=== PATIENT | female | born 1945 | race Caucasian/White ===

== ENCOUNTER 2016-08-12 18:21 | Inpatient (IN) | payer MEDICARE, OTHER ==
[~2016-08-12] VITALS: Ht 167.6 cm; Wt 65.6 kg
[2016-08-12 18:52] LABS: IS PT STATUS REG ER OR PRE ER? YES
[2016-08-12] MEDS ORDERED: CLOP75TA PO (19:12)
[2016-08-12] MEDS ORDERED: OMEP-110 PO (19:12)
[2016-08-12] MEDS ORDERED: LEVO88TA4 PO (19:12)
[2016-08-12] MEDS ORDERED: LISI5TAB7 PO (19:12)
[2016-08-12] MEDS ORDERED: TIOT18CA INH (19:12)
[2016-08-12] MEDS ORDERED: DIVA500T9 PO (19:12)
[2016-08-12] MEDS ORDERED: FENO145T13 PO (19:12)
[2016-08-12] MEDS ORDERED: AMIT50TA PO (19:12)
[2016-08-12] MEDS ORDERED: SIMV40TA3 PO (19:13)
[2016-08-12] MEDS ORDERED: ONDANSETRON 2MG/ML, 2ML IVPush PRN (20:30)
[2016-08-12] MEDS ORDERED: SODIUM CHLORIDE 0.9% 1,000 ML IV SCH (21:04)
[2016-08-12] MEDS ORDERED: LABETALOL 5MG/ML, 20ML IV PRN (21:30)
[2016-08-12] MEDS ORDERED: POLYETHYLENE GLYCOL 17 GM PACKET PO PRN (21:30)
[2016-08-12] MEDS ORDERED: DOCUSATE 100 MG CAPSULE PO PRN (21:30)
[2016-08-12] MEDS: PLEASE ENTER HEIGHT AND WEIGHT MC SCH (21:30)
[2016-08-12] MEDS ORDERED: ACETAMINOPHEN 325 MG TABLET PO PRN (21:30)
[2016-08-12] MEDS ORDERED: ONDANSETRON 2MG/ML, 2ML IVP PRN (21:30)
[2016-08-12] MEDS ORDERED: BISACODYL 10 MG SUPP PR PRN (21:30)
[2016-08-12] MEDS: ENOXAPARIN 40 MG/0.4 ML SQ SCH (21:30)
[2016-08-12] MEDS ORDERED: TRAZODONE 50MG TABLET PO PRN (21:30)
[2016-08-12] MEDS: DIVALPROEX 500 MG TABLET.DR PO SCH (23:01)
[2016-08-12] MEDS: ATORVASTATIN 40 MG TABLET PO SCH (23:03)
[2016-08-12 23:30] VITALS: BP 135/79
[2016-08-12] MEDS: AMITRIPTYLINE 50 MG TABLET PO SCH (23:53)
[2016-08-13] VITALS (7 sets, daily range): BP systolic 109–144; BP diastolic 72–85
[2016-08-13 06:16] LABS: BLOOD UREA NITROGEN 20 mg/dL (7-18)
[2016-08-13 06:27] LABS: ASPARTATE AMINO TRANSFERASE 26 U/L (15-37)
[2016-08-13] MEDS: IPRATROPIUM 0.5 MG/2.5 ML INHA HHN SCH ×3 (09:00→21:00)
[2016-08-13] MEDS: PLEASE ENTER HEIGHT AND WEIGHT MC SCH (09:55)
[2016-08-13] MEDS: OMEPRAZOLE 20 MG CAPSULE.DR PO SCH (10:15)
[2016-08-13] MEDS: CLOPIDOGREL 75 MG TABLET PO SCH (10:15)
[2016-08-13] MEDS: DIVALPROEX 500 MG TABLET.DR PO SCH ×3 (10:15→22:08)
[2016-08-13] MEDS: LISINOPRIL 5 MG TABLET PO SCH (10:15)
[2016-08-13] MEDS: FENOFIBRATE 145 MG TABLET PO SCH (10:16)
[2016-08-13] MEDS: LEVOTHYROXINE 88 MCG TABLET PO SCH (10:16)
[2016-08-13] MEDS ORDERED: GADOBUTROL 7.5 MMOL/7.5 ML PFS ONE (11:38)
[2016-08-13] MEDS ORDERED: LABETALOL 5MG/ML, 20ML IV PRN (14:16)
[2016-08-13] MEDS ORDERED: AMITRIPTYLINE 50 MG TABLET PO SCH (21:00)
[2016-08-13] MEDS ORDERED: SODIUM CHLORIDE 0.9% 1,000 ML IV SCH (21:04)
[2016-08-13] MEDS: ATORVASTATIN 40 MG TABLET PO SCH (22:08)
[2016-08-13] MEDS: AMITRIPTYLINE 50 MG TABLET PO SCH (22:08)
[2016-08-13] MEDS: ENOXAPARIN 40 MG/0.4 ML SQ SCH (22:14)
[2016-08-14] VITALS: BP 137/85
[2016-08-14] MEDS ORDERED: IPRATROPIUM 0.5 MG/2.5 ML INHA NPPB SCH (03:30)
[2016-08-14 04:27] VITALS: BP 120/77
[2016-08-14 06:34] VITALS: BP 134/85
[2016-08-14] MEDS: CLOPIDOGREL 75 MG TABLET PO SCH (08:42)
[2016-08-14] MEDS: FENOFIBRATE 145 MG TABLET PO SCH (08:42)
[2016-08-14] MEDS: OMEPRAZOLE 20 MG CAPSULE.DR PO SCH (08:42)
[2016-08-14] MEDS: LEVOTHYROXINE 88 MCG TABLET PO SCH (08:42)
[2016-08-14] MEDS: LISINOPRIL 5 MG TABLET PO SCH (08:42)
[2016-08-14] MEDS: DIVALPROEX 500 MG TABLET.DR PO SCH (08:42)
== END 2016-08-14 11:10 | disposition home health service (06) | DRG 69 ==
LOC: ED 19:46 → EDIP 20:17 → 4EST 21:07 → DCLOUNGE 08-14 10:45
PROVIDERS: ADMIT Internal Medicine; ATTEND Internal Medicine
DX: G45.9 Transient cerebral ischemic attack, unspecified (principal); R47.01 Aphasia; E78.5 Hyperlipidemia, unspecified; E03.9 Hypothyroidism, unspecified; I10 Essential (primary) hypertension; G43.909 Migraine, unspecified, not intractable, without status migrainosus; G46.0 Middle cerebral artery syndrome; J44.9 Chronic obstructive pulmonary disease, unspecified; I25.10 Atherosclerotic heart disease of native coronary artery without angina pectoris; I25.2 Old myocardial infarction; Z82.49 Family history of ischemic heart disease and other diseases of the circulatory system; Z80.9 Family history of malignant neoplasm, unspecified; Z85.528 Personal history of other malignant neoplasm of kidney; Z86.73 Personal history of transient ischemic attack (TIA), and cerebral infarction without residual deficits; Z87.891 Personal history of nicotine dependence; Z91.19 Patient's noncompliance with other medical treatment and regimen; Z90.5 Acquired absence of kidney
CPT/HCPCS: 36415; 70450; 70551; 71010; 80047; 80053; 80061; 83735; 84439; 84443; 84484; 85025; 85610; 85730; 93005; 93880; 94640; A9585; J1650; J7644; 92523-GN; J7030

== ENCOUNTER 2017-05-28 09:50 | Emergency (ER) | payer MEDICARE, MEDICAID ==
[~2017-05-28] VITALS: Ht 165.1 cm; Wt 68.0 kg
[~2017-05-28 09:50] MED LIST: AMIT50TA PO; CLIN300C3 PO; CLOP75TA PO; DIVA-68 PO; FENO145T13 PO; LEVO88TA4 PO; LISI5TAB7 PO; OMEP-110 PO; SIMV40TA3 PO; TIOT18CA INH
[2017-05-28 10:58] LABS: BASOPHILS # (AUTO) 0.02 x10^3/uL (0-0.1); BASOPHILS % (AUTO) 0 % (0-1); EOSINOPHILS # (AUTO) 0.11 x10^3/uL (0-0.4); EOSINOPHILS % (AUTO) 3 % (1-7); INTERNATIONAL NORMALIZED RATIO 0.98 (0.93-1.1); LYMPHOCYTES # (AUTO) 1.44 x10^3/uL (1-3.4); LYMPHOCYTES % (AUTO) 38 % (22-44); MD NO; MEAN CORPUSCULAR HEMOGLOBIN 31.3 pg (27.0-34.8); MEAN CORPUSCULAR HGB CONC 33.5 g/dL (32.4-35.8); MEAN CORPUSCULAR VOLUME 93.3 fL (80-100); MEAN PLATELET VOLUME 7.6 fL (7.4-10.4); MONOCYTES # (AUTO) 0.42 x10^3/uL (0.2-0.8); MONOCYTES % (AUTO) 11 % (2-9); NEUTROPHILS # (AUTO) 1.82 x10^3/uL (1.8-6.8); NEUTROPHILS % (AUTO) 48 % (42-75); PLATELET COUNT 150 x10^3/uL (130-400); PROTHROMBIN TIME 10.1 Seconds (9.6-11.5); RED CELL DISTRIBUTION WIDTH 15.6 % (9.6-15.2)
[2017-05-28 11:00] LABS: ALBUMIN 2.7 g/dL (3.4-5.0); ANION GAP 5 mmol/L (5-15); CALCIUM 8.7 mg/dL (8.5-10.1); CHLORIDE 103 mmol/L (98-107)
[2017-05-28 11:05] LABS: CREATININE 0.62 mg/dL (0.55-1.02); TROPONIN I < 0.015 ng/mL (0.000-0.045)
[2017-05-28] MEDS ORDERED: LIDOCAINE 1%, 20ML ONE (11:08)
[2017-05-28] MEDS ORDERED: PHENYLEPHRINE NASAL 1%, 15ML SPRAY ONE (11:08)
[2017-05-28 12:24] VITALS: BP 168/92
== END 2017-05-28 12:27 | disposition home or self-care (01) ==
LOC: ED 11:08
DX: C64.9 Malignant neoplasm of unspecified kidney, except renal pelvis (principal); J44.9 Chronic obstructive pulmonary disease, unspecified
CPT/HCPCS: 30901; 36415; 80048; 82040; 83880; 84484; 85025; 85610; 93005; 99285

== ENCOUNTER 2017-07-13 11:10 | Inpatient (IN) | payer MEDICARE, MEDICAID ==
[~2017-07-13] VITALS: Ht 167.6 cm; Wt 73.8 kg
[2017-07-13 11:41] LABS: BASOPHILS # (AUTO) 0.02 x10^3/uL (0-0.1); BASOPHILS % (AUTO) 0 % (0-1); EOSINOPHILS # (AUTO) 0.05 x10^3/uL (0-0.4); EOSINOPHILS % (AUTO) 1 % (1-7); LYMPHOCYTES # (AUTO) 2.29 x10^3/uL (1-3.4); LYMPHOCYTES % (AUTO) 52 % (22-44); MD NO; MEAN CORPUSCULAR HEMOGLOBIN 32.7 pg (27.0-34.8); MEAN CORPUSCULAR HGB CONC 34.1 g/dL (32.4-35.8); MEAN CORPUSCULAR VOLUME 95.9 fL (80-100); MEAN PLATELET VOLUME 7.6 fL (7.4-10.4); MONOCYTES # (AUTO) 0.43 x10^3/uL (0.2-0.8); MONOCYTES % (AUTO) 10 % (2-9); NEUTROPHILS # (AUTO) 1.63 x10^3/uL (1.8-6.8); NEUTROPHILS % (AUTO) 37 % (42-75); PLATELET COUNT 189 x10^3/uL (130-400); RED BLOOD COUNT 3.76 x10^6/uL (3.82-5.3); RED CELL DISTRIBUTION WIDTH 15.7 % (9.6-15.2)
[2017-07-13 11:49] LABS: INTERNATIONAL NORMALIZED RATIO 0.95 (0.93-1.1); PROTHROMBIN TIME 9.9 Seconds (9.6-11.5)
[2017-07-13 11:53] LABS: ALBUMIN 3.4 g/dL (3.4-5.0); CALCIUM 8.8 mg/dL (8.5-10.1); CHLORIDE 101 mmol/L (98-107)
[2017-07-13 11:58] LABS: ALANINE AMINOTRANSFERASE 12 U/L (12-78); ALKALINE PHOSPHATASE 68 U/L (45-117); ANION GAP 6 mmol/L (5-15); BILIRUBIN,TOTAL 0.7 mg/dL (0.2-1.0); CREATININE 0.72 mg/dL (0.55-1.02); TOTAL PROTEIN 7.6 g/dL (6.4-8.2)
[2017-07-13] MEDS ORDERED: LABETALOL 5MG/ML, 20ML IVPush ONE (12:00)
[2017-07-13] MEDS ORDERED: PLEASE ENTER HEIGHT AND WEIGHT MC SCH (12:00)
[2017-07-13] MEDS ORDERED: LABETALOL 5MG/ML, 20ML ONE (12:07)
[2017-07-13] MEDS ORDERED: ASPI-515 PO (12:18)
[2017-07-13] MEDS ORDERED: LORA2ORA PO (12:18)
[2017-07-13] MEDS ORDERED: AMIT50TA PO (12:18)
[2017-07-13] MEDS ORDERED: [UNRECOGNIZED DRUG - OTHER] (12:18)
[2017-07-13] MEDS ORDERED: SODIUM CHLORIDE FLUSH 10ML SYR IVF PRN (12:30)
[2017-07-13] MEDS ORDERED: POLYETHYLENE GLYCOL 17 GM PACKET PO PRN (13:30)
[2017-07-13] MEDS ORDERED: hydrALAzine 20 MG/ML, 1ML IVPush PRN ×2 (13:30→21:30)
[2017-07-13] MEDS ORDERED: BISACODYL 10 MG SUPP PR PRN (13:30)
[2017-07-13] MEDS ORDERED: PROMETHAZINE 25 MG/ML, 1ML IM PRN (13:30)
[2017-07-13] MEDS ORDERED: LABETALOL 5MG/ML, 20ML IVPush PRN ×2 (13:30→18:00)
[2017-07-13 14:00] VITALS: BP 189/116
[2017-07-13] MEDS ORDERED: AMLODIPINE 5 MG TABLET PO ONE (14:00)
[2017-07-13 14:01] VITALS: BP 189/116
[2017-07-13] MEDS: HYDROcodone/APAP 5/325 TABLET PO PRN ×2 (15:38→21:44)
[2017-07-13] MEDS: ENOXAPARIN 40 MG/0.4 ML SQ SCH (15:38)
[2017-07-13] MEDS: DIVALPROEX 500 MG TABLET.DR PO SCH ×2 (15:38→21:44)
[2017-07-13 16:24] VITALS: BP 190/98
[2017-07-13 16:56] VITALS: BP 176/90
[2017-07-13 17:29] VITALS: BP 167/88
[2017-07-13 20:28] VITALS: BP 137/80
[2017-07-13] MEDS: SIMVASTATIN 40 MG TABLET PO SCH (21:44)
[2017-07-13] MEDS: LORazepam INTENSOL 2 MG/ML PO SCH (21:44)
[2017-07-13] MEDS: AMITRIPTYLINE 50 MG TABLET PO SCH (21:44)
[2017-07-13 22:20] LABS: MICROSCOPIC INDICATED
[2017-07-13 22:29] LABS: CULTURE INDICATED? YES
[2017-07-14 00:47] VITALS: BP 127/76
[2017-07-14 06:01] LABS: ANION GAP 7 mmol/L (5-15); CALCIUM 8.5 mg/dL (8.5-10.1); CHLORIDE 102 mmol/L (98-107)
[2017-07-14 06:06] LABS: ALANINE AMINOTRANSFERASE 11 U/L (12-78); ALBUMIN 2.8 g/dL (3.4-5.0); ALKALINE PHOSPHATASE 58 U/L (45-117); BILIRUBIN,TOTAL 0.4 mg/dL (0.2-1.0); TOTAL PROTEIN 6.8 g/dL (6.4-8.2)
[2017-07-14] MEDS: LEVOTHYROXINE 88 MCG TABLET PO SCH (06:19)
[2017-07-14] MEDS: ACETAMINOPHEN 325 MG TABLET PO PRN ×3 (06:19→16:07)
[2017-07-14 06:26] LABS: CHOL/HDL RATIO 2.9; LDL/HDL RATIO 1.1 (0.5-3.0); THYROID STIMULATING HORMONE 1.32 mIU/L (0.358-3.740)
[2017-07-14 06:57] VITALS: BP 124/71
[2017-07-14 08:54] VITALS: BP 123/73
[2017-07-14] MEDS ORDERED: LISINOPRIL 5 MG TABLET PO SCH (09:00)
[2017-07-14] MEDS: DIVALPROEX 500 MG TABLET.DR PO SCH ×3 (10:32→20:49)
[2017-07-14] MEDS: FENOFIBRATE 145 MG TABLET PO SCH (10:32)
[2017-07-14] MEDS: ASPIRIN 81 MG TABLET EC PO SCH (10:32)
[2017-07-14 13:24] VITALS: BP 127/73
[2017-07-14] MEDS: ENOXAPARIN 40 MG/0.4 ML SQ SCH (16:07)
[2017-07-14 19:28] VITALS: BP 135/83
[2017-07-14] MEDS: SIMVASTATIN 40 MG TABLET PO SCH (20:49)
[2017-07-14] MEDS: AMITRIPTYLINE 50 MG TABLET PO SCH (20:49)
[2017-07-14] MEDS: LORazepam INTENSOL 2 MG/ML PO SCH (20:49)
[2017-07-15 03:35] VITALS: BP 122/78
[2017-07-15] MEDS: LEVOTHYROXINE 88 MCG TABLET PO SCH (06:01)
[2017-07-15 07:33] VITALS: BP 138/81
[2017-07-15] MEDS: ASPIRIN 81 MG TABLET EC PO SCH (08:52)
[2017-07-15] MEDS: DIVALPROEX 500 MG TABLET.DR PO SCH ×2 (08:52→15:49)
[2017-07-15] MEDS: FENOFIBRATE 145 MG TABLET PO SCH (08:52)
[2017-07-15 14:50] VITALS: BP 149/84
[2017-07-15] MEDS: ENOXAPARIN 40 MG/0.4 ML SQ SCH (15:49)
== END 2017-07-15 18:08 | DRG 103 ==
LOC: ED 12:17 → EDIP 12:18 → ED 12:31 → 4EST 13:06
PROVIDERS: ADMIT Family Medicine; ATTEND Family Medicine
DX: G43.109 Migraine with aura, not intractable, without status migrainosus (principal); I65.23 Occlusion and stenosis of bilateral carotid arteries; I69.351 Hemiplegia and hemiparesis following cerebral infarction affecting right dominant side; Z99.81 Dependence on supplemental oxygen; J44.9 Chronic obstructive pulmonary disease, unspecified; I10 Essential (primary) hypertension; E03.9 Hypothyroidism, unspecified; E78.5 Hyperlipidemia, unspecified; Z66 Do not resuscitate; F41.9 Anxiety disorder, unspecified; I16.0 Hypertensive urgency; I25.10 Atherosclerotic heart disease of native coronary artery without angina pectoris; K59.00 Constipation, unspecified; I25.2 Old myocardial infarction; Z85.528 Personal history of other malignant neoplasm of kidney; Z87.891 Personal history of nicotine dependence; Z90.5 Acquired absence of kidney; Z79.899 Other long term (current) drug therapy; Z88.5 Allergy status to narcotic agent; G44.89 Other headache syndrome
CPT/HCPCS: 36415; 70450; 70551; 80047; 80053; 80061; 80164; 81001; 82962; 84443; 85025; 85520; 85610; 85730; 87086; 93005; 93306; 93880; 96374; J1650; 92523-GN; J0360

== ENCOUNTER 2017-10-23 16:00 | Inpatient (IN) | payer MEDICARE, MEDICAID ==
[~2017-10-23] VITALS: Ht 165.1 cm; Wt 82.2 kg
[~2017-10-23 16:00] MED LIST changes: +ASPI-515 PO; -FENO145T13 PO; +FENO145T30 PO; +LORA2ORA PO; +[UNRECOGNIZED DRUG - OTHER]
[2017-10-23] MEDS ORDERED: MORPHINE SULFATE 4 MG/ML, 1ML ONE (16:13)
[2017-10-23] MEDS ORDERED: PROCHLORPERAZINE 5 MG/ML, 2ML ONE (16:13)
[2017-10-23] MEDS ORDERED: HYDROmorphone 2 MG/ML, 1ML ONE ×3 (16:24→19:12)
[2017-10-23 16:30] LABS: BASOPHILS # (AUTO) 0.03 x10^3/uL (0-0.1); BASOPHILS % (AUTO) 1 % (0-1); EOSINOPHILS # (AUTO) 0.07 x10^3/uL (0-0.4); EOSINOPHILS % (AUTO) 1 % (1-7); LYMPHOCYTES # (AUTO) 2.23 x10^3/uL (1-3.4); LYMPHOCYTES % (AUTO) 40 % (22-44); MD NO; MEAN CORPUSCULAR HEMOGLOBIN 31.9 pg (27.0-34.8); MEAN CORPUSCULAR HGB CONC 33.4 g/dL (32.4-35.8); MEAN CORPUSCULAR VOLUME 95.7 fL (80-100); MEAN PLATELET VOLUME 7.4 fL (7.4-10.4); MONOCYTES # (AUTO) 0.44 x10^3/uL (0.2-0.8); MONOCYTES % (AUTO) 8 % (2-9); NEUTROPHILS # (AUTO) 2.77 x10^3/uL (1.8-6.8); NEUTROPHILS % (AUTO) 50 % (42-75); PLATELET COUNT 182 x10^3/uL (130-400); RED BLOOD COUNT 3.35 x10^6/uL (3.82-5.3); RED CELL DISTRIBUTION WIDTH 14.4 % (9.6-15.2)
[2017-10-23] MEDS ORDERED: MORPHINE SULFATE 4 MG/ML, 1ML IVPush PRN (16:30)
[2017-10-23] MEDS ORDERED: HYDROmorphone 1 MG/ML, 1ML IV ONE ×2 (16:30→18:30)
[2017-10-23] MEDS ORDERED: PROCHLORPERAZINE 5 MG/ML, 2ML IVPush PRN (16:30)
[2017-10-23] MEDS ORDERED: MELA5TAB19 PO (16:35)
[2017-10-23] MEDS ORDERED: OMEP-110 PO (16:35)
[2017-10-23 16:36] LABS: INTERNATIONAL NORMALIZED RATIO 0.96 (0.93-1.1)
[2017-10-23 16:38] LABS: ALBUMIN 3.1 g/dL (3.4-5.0); ANION GAP 6 mmol/L (5-15); CALCIUM 8.7 mg/dL (8.5-10.1); CHLORIDE 104 mmol/L (98-107); CREATININE 0.65 mg/dL (0.55-1.02)
[2017-10-23] MEDS ORDERED: HYDROmorphone 1 MG/ML, 1ML IVPush PRN (19:30)
[2017-10-23 20:19] VITALS: BP 134/77
[2017-10-23] MEDS ORDERED: POLYETHYLENE GLYCOL 17 GM PACKET PO PRN (20:30)
[2017-10-23] MEDS ORDERED: ONDANSETRON 2MG/ML, 2ML IVPush PRN (20:30)
[2017-10-23] MEDS ORDERED: ONDANSETRON ODT 4 MG PO PRN (20:30)
[2017-10-23] MEDS: HYDROmorphone 2 MG/ML, 1ML IVPush PRN ×2 (20:54→23:59)
[2017-10-23] MEDS: SODIUM CHLORIDE 0.9% 1,000 ML IV SCH (20:54)
[2017-10-23] MEDS: OXYcodone IR 5MG TABLET PO PRN (20:54)
[2017-10-23] MEDS: DIVALPROEX 500 MG TABLET.DR PO SCH (22:10)
[2017-10-23] MEDS: MELATONIN 5 MG TABLET PO SCH (22:10)
[2017-10-23] MEDS: AMITRIPTYLINE 50 MG TABLET PO SCH (22:10)
[2017-10-23] MEDS: SIMVASTATIN 40 MG TABLET PO SCH (22:11)
[2017-10-23] MEDS: ENOXAPARIN 40 MG/0.4 ML SQ SCH (22:11)
[2017-10-23 22:48] LABS: MICROSCOPIC AUTO
[2017-10-23 22:49] LABS: CULTURE INDICATED? NO
[2017-10-24 00:40] VITALS: BP 133/82
[2017-10-24 04:11] VITALS: BP 104/53
[2017-10-24] MEDS: HYDROmorphone 2 MG/ML, 1ML IVPush PRN ×2 (04:14→08:29)
[2017-10-24 05:43] LABS: ANION GAP 6 mmol/L (5-15); CHLORIDE 105 mmol/L (98-107)
[2017-10-24 05:44] LABS: CREATININE 0.82 mg/dL (0.55-1.02)
[2017-10-24 05:50] LABS: BASOPHILS # (AUTO) 0.02 x10^3/uL (0-0.1); BASOPHILS % (AUTO) 0 % (0-1); EOSINOPHILS # (AUTO) 0.01 x10^3/uL (0-0.4); EOSINOPHILS % (AUTO) 0 % (1-7); LYMPHOCYTES # (AUTO) 1.34 x10^3/uL (1-3.4); LYMPHOCYTES % (AUTO) 17 % (22-44); MD NO; MEAN CORPUSCULAR HEMOGLOBIN 31.8 pg (27.0-34.8); MEAN CORPUSCULAR HGB CONC 32.6 g/dL (32.4-35.8); MEAN CORPUSCULAR VOLUME 97.6 fL (80-100); MEAN PLATELET VOLUME 8.2 fL (7.4-10.4); MONOCYTES # (AUTO) 0.75 x10^3/uL (0.2-0.8); MONOCYTES % (AUTO) 9 % (2-9); NEUTROPHILS # (AUTO) 5.81 x10^3/uL (1.8-6.8); NEUTROPHILS % (AUTO) 73 % (42-75); PLATELET COUNT 186 x10^3/uL (130-400); RED BLOOD COUNT 3.24 x10^6/uL (3.82-5.3); RED CELL DISTRIBUTION WIDTH 14.5 % (9.6-15.2)
[2017-10-24] MEDS: OXYcodone IR 5MG TABLET PO PRN ×3 (06:45→17:26)
[2017-10-24 08:23] VITALS: BP 112/64
[2017-10-24] MEDS: LISINOPRIL 5 MG TABLET PO SCH (09:56)
[2017-10-24] MEDS: SENNA/DOCUSATE TABLET PO SCH (09:56)
[2017-10-24] MEDS: OMEPRAZOLE 20 MG CAPSULE.DR PO SCH (09:56)
[2017-10-24] MEDS: LEVOTHYROXINE 88 MCG TABLET PO SCH (09:56)
[2017-10-24] MEDS: FENOFIBRATE 145 MG TABLET PO SCH (09:56)
[2017-10-24] MEDS: DIVALPROEX 500 MG TABLET.DR PO SCH ×3 (09:57→20:36)
[2017-10-24] MEDS: ASPIRIN 81 MG TABLET EC PO SCH (09:57)
[2017-10-24] MEDS: SODIUM CHLORIDE 0.9% 1,000 ML IV SCH ×2 (09:58→20:25)
[2017-10-24 12:59] VITALS: BP 100/46
[2017-10-24] MEDS: SIMVASTATIN 40 MG TABLET PO SCH (20:36)
[2017-10-24] MEDS: MELATONIN 5 MG TABLET PO SCH (20:36)
[2017-10-24] MEDS: AMITRIPTYLINE 50 MG TABLET PO SCH (20:37)
[2017-10-24] MEDS: ENOXAPARIN 40 MG/0.4 ML SQ SCH (20:37)
[2017-10-24 20:52] VITALS: BP 118/54
[2017-10-25] MEDS: OXYcodone IR 5MG TABLET PO PRN (00:02)
[2017-10-25 01:36] VITALS: BP 103/65
[2017-10-25] MEDS ORDERED: HYDROmorphone 2 MG/ML, 1ML IVPush PRN (02:30)
[2017-10-25] MEDS: SODIUM CHLORIDE 0.9% 1,000 ML IV SCH ×3 (03:50→20:22)
[2017-10-25 04:00] VITALS: BP 124/48
[2017-10-25] MEDS ORDERED: SODIUM CHLORIDE 0.9%, 250ML IVBOLUS ONE (05:00)
[2017-10-25] MEDS: LEVOTHYROXINE 88 MCG TABLET PO SCH (05:22)
[2017-10-25 07:16] VITALS: BP 117/46
[2017-10-25 07:31] LABS: MEAN CORPUSCULAR HGB CONC 32.4 g/dL (32.4-35.8); MEAN CORPUSCULAR VOLUME 98.8 fL (80-100); PLATELET COUNT 140 x10^3/uL (130-400); RED BLOOD COUNT 2.67 x10^6/uL (3.82-5.3); RED CELL DISTRIBUTION WIDTH 14.4 % (9.6-15.2)
[2017-10-25 07:37] LABS: HEMOGRAM NOTE RECHECKED
[2017-10-25 07:50] LABS: ALANINE AMINOTRANSFERASE 14 U/L (12-78); ALBUMIN 2.3 g/dL (3.4-5.0); ANION GAP 3 mmol/L (5-15); CALCIUM 8.4 mg/dL (8.5-10.1); CHLORIDE 111 mmol/L (98-107); CREATININE 0.99 mg/dL (0.55-1.02)
[2017-10-25 07:52] LABS: ALKALINE PHOSPHATASE 48 U/L (45-117); BILIRUBIN,TOTAL 0.3 mg/dL (0.2-1.0); TOTAL PROTEIN 5.8 g/dL (6.4-8.2)
[2017-10-25] MEDS ORDERED: NALOXONE 0.4 MG/ML, 1ML IVPush ONE ×2 (08:00→10:30)
[2017-10-25 08:06] LABS: BASOPHILS # (AUTO) 0.02 x10^3/uL (0-0.1); BASOPHILS % (AUTO) 0 % (0-1); EOSINOPHILS # (AUTO) 0.04 x10^3/uL (0-0.4); EOSINOPHILS % (AUTO) 0 % (1-7); LYMPHOCYTES # (AUTO) 1.63 x10^3/uL (1-3.4); LYMPHOCYTES % (AUTO) 14 % (22-44); MD SCAN; MONOCYTES # (AUTO) 1.72 x10^3/uL (0.2-0.8); MONOCYTES % (AUTO) 15 % (2-9); NEUTROPHILS # (AUTO) 8.31 x10^3/uL (1.8-6.8); NEUTROPHILS % (AUTO) 71 % (42-75)
[2017-10-25] MEDS: SENNA/DOCUSATE TABLET PO SCH (09:00)
[2017-10-25] MEDS: LISINOPRIL 5 MG TABLET PO SCH (09:00)
[2017-10-25] MEDS: FENOFIBRATE 145 MG TABLET PO SCH (09:00)
[2017-10-25] MEDS: ASPIRIN 81 MG TABLET EC PO SCH (09:00)
[2017-10-25] MEDS: DIVALPROEX 500 MG TABLET.DR PO SCH ×3 (09:00→20:53)
[2017-10-25] MEDS: OMEPRAZOLE 20 MG CAPSULE.DR PO SCH (09:00)
[2017-10-25] MEDS ORDERED: ALBUTEROL/IPRATROPIUM 2.5MG/0.5MG, 3 ML ONE (09:54)
[2017-10-25] MEDS: ALBUTEROL/IPRATROPIUM 2.5MG/0.5MG, 3 ML INLINE SCH ×4 (10:11→23:51)
[2017-10-25] MEDS ORDERED: NALOXONE 0.4 MG in SODIUM CHLORIDE 0.9% 1,000 ML IV SCH (10:30)
[2017-10-25] MEDS: NALOXONE IV SCH ×2 (12:24→18:24)
[2017-10-25] MEDS: SODIUM CHLORIDE 0.9% IV SCH ×2 (12:24→18:24)
[2017-10-25] MEDS: methylPREDNISolone SOD SUCC 125 MG/2 ML IVPush SCH ×2 (13:44→20:18)
[2017-10-25] MEDS: ENOXAPARIN 40 MG/0.4 ML SQ SCH (20:18)
[2017-10-25] MEDS: AMITRIPTYLINE 50 MG TABLET PO SCH (20:53)
[2017-10-25] MEDS: MELATONIN 5 MG TABLET PO SCH (20:53)
[2017-10-25] MEDS: SIMVASTATIN 40 MG TABLET PO SCH (20:53)
[2017-10-25] MEDS ORDERED: LABETALOL 5MG/ML, 20ML IVPush PRN (23:30)
[2017-10-25] MEDS ORDERED: LABETALOL 5MG/ML, 20ML ONE (23:43)
[2017-10-26] MEDS: methylPREDNISolone SOD SUCC 125 MG/2 ML IVPush SCH ×4 (01:57→18:04)
[2017-10-26] MEDS: LABETALOL 5MG/ML, 20ML IVPush PRN ×4 (01:58→17:08)
[2017-10-26] MEDS: ALBUTEROL/IPRATROPIUM 2.5MG/0.5MG, 3 ML INLINE SCH ×6 (02:29→22:30)
[2017-10-26 04:00] VITALS: BP 172/93
[2017-10-26 04:30] LABS: ALANINE AMINOTRANSFERASE 13 U/L (12-78); ALBUMIN 2.3 g/dL (3.4-5.0); ANION GAP 3 mmol/L (5-15); CALCIUM 8.8 mg/dL (8.5-10.1); CHLORIDE 113 mmol/L (98-107)
[2017-10-26 04:31] LABS: MEAN CORPUSCULAR HEMOGLOBIN 32.4 pg (27.0-34.8); MEAN CORPUSCULAR HGB CONC 33.6 g/dL (32.4-35.8); MEAN CORPUSCULAR VOLUME 96.6 fL (80-100); RED BLOOD COUNT 2.63 x10^6/uL (3.82-5.3); RED CELL DISTRIBUTION WIDTH 14.1 % (9.6-15.2)
[2017-10-26 04:33] LABS: ALKALINE PHOSPHATASE 49 U/L (45-117); BILIRUBIN,TOTAL 0.4 mg/dL (0.2-1.0)
[2017-10-26 04:37] LABS: O2 FLOW 6 L/min
[2017-10-26 05:06] LABS: BASOPHILS # (AUTO) 0.01 x10^3/uL (0-0.1); BASOPHILS % (AUTO) 0 % (0-1); EOSINOPHILS % (AUTO) 0 % (1-7); LYMPHOCYTES # (AUTO) 0.46 x10^3/uL (1-3.4); LYMPHOCYTES % (AUTO) 8 % (22-44); MD SCAN; MEAN PLATELET VOLUME 7.9 fL (7.4-10.4); MONOCYTES # (AUTO) 0.06 x10^3/uL (0.2-0.8); MONOCYTES % (AUTO) 1 % (2-9); NEUTROPHILS # (AUTO) 5.39 x10^3/uL (1.8-6.8); NEUTROPHILS % (AUTO) 91 % (42-75); PLATELET COUNT 120 x10^3/uL (130-400)
[2017-10-26] MEDS: LEVOTHYROXINE 88 MCG TABLET PO SCH (06:10)
[2017-10-26] MEDS: DIVALPROEX 500 MG TABLET.DR PO SCH ×3 (09:00→20:29)
[2017-10-26] MEDS: ASPIRIN 81 MG TABLET EC PO SCH (09:00)
[2017-10-26] MEDS: LISINOPRIL 5 MG TABLET PO SCH (09:00)
[2017-10-26] MEDS: SENNA/DOCUSATE TABLET PO SCH (09:00)
[2017-10-26] MEDS: FENOFIBRATE 145 MG TABLET PO SCH (09:00)
[2017-10-26] MEDS: SODIUM CHLORIDE 0.9% 1,000 ML IV SCH ×2 (09:29→17:05)
[2017-10-26] MEDS: NALOXONE IV SCH (12:52)
[2017-10-26] MEDS: SODIUM CHLORIDE 0.9% IV SCH (12:52)
[2017-10-26] MEDS: PANTOPRAZOLE 40 MG IV IVPush SCH (12:53)
[2017-10-26] MEDS: hydrALAzine 20 MG/ML, 1ML IV PRN (18:03)
[2017-10-26] MEDS: AMITRIPTYLINE 50 MG TABLET PO SCH (20:29)
[2017-10-26] MEDS: MELATONIN 5 MG TABLET PO SCH (20:30)
[2017-10-26] MEDS: SIMVASTATIN 40 MG TABLET PO SCH (20:30)
[2017-10-26] MEDS: ENOXAPARIN 40 MG/0.4 ML SQ SCH (20:57)
[2017-10-27] MEDS ORDERED: KETOROLAC 30 MG/1 ML IVPush ONE
[2017-10-27] MEDS: PANTOPRAZOLE 40 MG IV IVPush SCH ×3 (00:39→23:00)
[2017-10-27] MEDS: methylPREDNISolone SOD SUCC 125 MG/2 ML IVPush SCH ×2 (01:18→08:17)
[2017-10-27] MEDS: SODIUM CHLORIDE 0.9% 1,000 ML IV SCH (01:19)
[2017-10-27] MEDS: hydrALAzine 20 MG/ML, 1ML IV PRN (02:14)
[2017-10-27] MEDS: ALBUTEROL/IPRATROPIUM 2.5MG/0.5MG, 3 ML INLINE SCH ×5 (02:30→22:30)
[2017-10-27] MEDS: LABETALOL 5MG/ML, 20ML IVPush PRN (03:34)
[2017-10-27 04:56] LABS: ANION GAP 8 mmol/L (5-15); CALCIUM 8.6 mg/dL (8.5-10.1); CHLORIDE 117 mmol/L (98-107); CREATININE 0.64 mg/dL (0.55-1.02)
[2017-10-27 04:57] LABS: MEAN CORPUSCULAR HEMOGLOBIN 31.8 pg (27.0-34.8); MEAN CORPUSCULAR HGB CONC 33.3 g/dL (32.4-35.8); MEAN CORPUSCULAR VOLUME 95.6 fL (80-100); RED BLOOD COUNT 2.53 x10^6/uL (3.82-5.3); RED CELL DISTRIBUTION WIDTH 13.8 % (9.6-15.2)
[2017-10-27 05:00] VITALS: BP 176/80
[2017-10-27 05:30] LABS: MEAN PLATELET VOLUME 8.1 fL (7.4-10.4); PLATELET COUNT 103 x10^3/uL (130-400)
[2017-10-27 05:50] LABS: BASOPHILS % (AUTO) 0 % (0-1); EOSINOPHILS % (AUTO) 0 % (1-7); LYMPHOCYTES # (AUTO) 0.28 x10^3/uL (1-3.4); LYMPHOCYTES % (AUTO) 4 % (22-44); MD SCAN; MONOCYTES # (AUTO) 0.09 x10^3/uL (0.2-0.8); MONOCYTES % (AUTO) 1 % (2-9); NEUTROPHILS # (AUTO) 7.02 x10^3/uL (1.8-6.8); NEUTROPHILS % (AUTO) 95 % (42-75)
[2017-10-27] MEDS: LEVOTHYROXINE 88 MCG TABLET PO SCH (05:53)
[2017-10-27] MEDS: ASPIRIN 81 MG TABLET EC PO SCH (09:11)
[2017-10-27] MEDS: FENOFIBRATE 145 MG TABLET PO SCH (09:11)
[2017-10-27] MEDS: SENNA/DOCUSATE TABLET PO SCH (09:12)
[2017-10-27] MEDS: DIVALPROEX 500 MG TABLET.DR PO SCH ×3 (09:12→20:47)
[2017-10-27] MEDS: LISINOPRIL 5 MG TABLET PO SCH (09:12)
[2017-10-27] MEDS: KETOROLAC 30 MG/1 ML IM PRN ×2 (11:48→20:47)
[2017-10-27 16:48] VITALS: BP 152/82
[2017-10-27] MEDS: LABETALOL 100 MG TABLET PO SCH (17:18)
[2017-10-27] MEDS ORDERED: SODIUM CHLORIDE 0.9% 1,000 ML IV SCH (20:05)
[2017-10-27 20:40] VITALS: BP 149/77
[2017-10-27] MEDS: AMITRIPTYLINE 50 MG TABLET PO SCH (20:47)
[2017-10-27] MEDS: ENOXAPARIN 40 MG/0.4 ML SQ SCH (20:47)
[2017-10-27] MEDS: MELATONIN 5 MG TABLET PO SCH (20:47)
[2017-10-27] MEDS: SIMVASTATIN 40 MG TABLET PO SCH (20:47)
[2017-10-28 01:04] VITALS: BP 122/73
[2017-10-28] MEDS: KETOROLAC 30 MG/1 ML IM PRN (03:29)
[2017-10-28 05:24] LABS: BASOPHILS % (AUTO) 0 % (0-1); EOSINOPHILS % (AUTO) 0 % (1-7); LYMPHOCYTES # (AUTO) 1.04 x10^3/uL (1-3.4); LYMPHOCYTES % (AUTO) 18 % (22-44); MD NO; MEAN CORPUSCULAR HEMOGLOBIN 31.8 pg (27.0-34.8); MEAN CORPUSCULAR HGB CONC 33.3 g/dL (32.4-35.8); MEAN CORPUSCULAR VOLUME 95.3 fL (80-100); MONOCYTES # (AUTO) 0.33 x10^3/uL (0.2-0.8); MONOCYTES % (AUTO) 6 % (2-9); NEUTROPHILS # (AUTO) 4.54 x10^3/uL (1.8-6.8); NEUTROPHILS % (AUTO) 77 % (42-75); PLATELET COUNT 110 x10^3/uL (130-400); RED BLOOD COUNT 2.39 x10^6/uL (3.82-5.3)
[2017-10-28 05:28] LABS: ANION GAP 4 mmol/L (5-15); CALCIUM 8.4 mg/dL (8.5-10.1); CHLORIDE 117 mmol/L (98-107); CREATININE 0.89 mg/dL (0.55-1.02)
[2017-10-28] MEDS: LEVOTHYROXINE 88 MCG TABLET PO SCH (05:57)
[2017-10-28 06:27] VITALS: BP 134/80
[2017-10-28] MEDS: ALBUTEROL/IPRATROPIUM 2.5MG/0.5MG, 3 ML INLINE SCH ×5 (07:10→22:00)
[2017-10-28] MEDS ORDERED: prednisOLONE 15 MG/5 ML ORAL SOLN PO SCH (08:00)
[2017-10-28] MEDS: LABETALOL 100 MG TABLET PO SCH ×2 (08:03→17:24)
[2017-10-28] MEDS: SENNA/DOCUSATE TABLET PO SCH (08:03)
[2017-10-28] MEDS: FENOFIBRATE 145 MG TABLET PO SCH (08:03)
[2017-10-28] MEDS: FERROUS SULFATE 325 MG TABLET PO SCH ×2 (08:03→17:24)
[2017-10-28] MEDS: LISINOPRIL 5 MG TABLET PO SCH (08:03)
[2017-10-28] MEDS: ASPIRIN 81 MG TABLET EC PO SCH (08:03)
[2017-10-28] MEDS: DIVALPROEX 500 MG TABLET.DR PO SCH ×3 (08:03→19:50)
[2017-10-28] MEDS: KETOROLAC 30 MG/1 ML IV PRN ×2 (08:06→17:24)
[2017-10-28] MEDS: predniSONE 50MG TABLET PO SCH (08:55)
[2017-10-28] MEDS: PANTOPRAZOLE 40 MG IV IVPush SCH ×2 (11:36→23:36)
[2017-10-28] MEDS ORDERED: PRED50TA PO (13:07)
[2017-10-28] MEDS ORDERED: LABE100T3 PO (13:07)
[2017-10-28] MEDS ORDERED: FERR-51 PO (13:07)
[2017-10-28] MEDS ORDERED: MAGNESIUM CITRATE 300ML ORAL SOL PO PRN (13:30)
[2017-10-28 13:36] VITALS: BP 143/82
[2017-10-28] MEDS ORDERED: PINK LADY ENEMA 490 ML BOTTLE PR ONE ×2 (16:30→18:30)
[2017-10-28 17:23] VITALS: BP 147/82
[2017-10-28 18:45] VITALS: BP 143/77
[2017-10-28] MEDS ORDERED: BISACODYL 10 MG SUPP PR PRN (19:00)
[2017-10-28] MEDS ORDERED: POLYETHYLENE GLYCOL 17 GM PACKET PO PRN (19:00)
[2017-10-28] MEDS: ENOXAPARIN 40 MG/0.4 ML SQ SCH (19:50)
[2017-10-28] MEDS: MELATONIN 5 MG TABLET PO SCH (19:51)
[2017-10-28] MEDS: SIMVASTATIN 40 MG TABLET PO SCH (19:51)
[2017-10-28] MEDS: AMITRIPTYLINE 50 MG TABLET PO SCH (19:51)
[2017-10-29 02:46] VITALS: BP 144/81
[2017-10-29] MEDS: LEVOTHYROXINE 88 MCG TABLET PO SCH (05:19)
[2017-10-29] MEDS: ALBUTEROL/IPRATROPIUM 2.5MG/0.5MG, 3 ML INLINE SCH ×2 (06:34→10:39)
[2017-10-29 06:42] VITALS: BP 148/79
[2017-10-29] MEDS: FERROUS SULFATE 325 MG TABLET PO SCH ×2 (08:33→16:32)
[2017-10-29] MEDS: predniSONE 50MG TABLET PO SCH (08:33)
[2017-10-29] MEDS: LABETALOL 100 MG TABLET PO SCH (08:40)
[2017-10-29] MEDS: SENNA/DOCUSATE TABLET PO SCH (08:41)
[2017-10-29] MEDS: LISINOPRIL 5 MG TABLET PO SCH (08:41)
[2017-10-29] MEDS: FENOFIBRATE 145 MG TABLET PO SCH (08:42)
[2017-10-29] MEDS: ASPIRIN 81 MG TABLET EC PO SCH (08:42)
[2017-10-29] MEDS ORDERED: DOCUSATE 100 MG CAPSULE PO SCH (09:00)
[2017-10-29] MEDS: DIVALPROEX 500 MG TABLET.DR PO SCH ×2 (09:03→16:32)
[2017-10-29] MEDS: KETOROLAC 30 MG/1 ML IV PRN ×2 (09:04→14:39)
[2017-10-29] MEDS: PANTOPRAZOLE 40 MG IV IVPush SCH (13:17)
[2017-10-29 14:58] VITALS: BP 154/78
[2017-10-29] MEDS ORDERED: ALBUTEROL/IPRATROPIUM 2.5MG/0.5MG, 3 ML INLINE SCH (15:00)
== END 2017-10-29 17:15 | DRG 542 ==
LOC: ED 18:18 → EDIP 19:19 → 4NOR 19:45 → CCU 10-25 09:28 → 5SO 10-27 16:46
PROVIDERS: ADMIT Family Medicine; ATTEND Family Medicine
PROC: 0T9B70Z Drainage of Bladder with Drainage Device, Via Natural or Artificial Opening (ICD-10-PCS; principal; 2017-10-23)
DX: M80.052A Age-related osteoporosis with current pathological fracture, left femur, initial encounter for fracture (principal); J96.21 Acute and chronic respiratory failure with hypoxia; J96.22 Acute and chronic respiratory failure with hypercapnia; G92 Toxic encephalopathy; D68.69 Other thrombophilia; E87.2 Acidosis; J44.1 Chronic obstructive pulmonary disease with (acute) exacerbation; S32.592A Other specified fracture of left pubis, initial encounter for closed fracture; F11.10 Opioid abuse, uncomplicated; W01.0XXA Fall on same level from slipping, tripping and stumbling without subsequent striking against object, initial encounter; G25.0 Essential tremor; G43.909 Migraine, unspecified, not intractable, without status migrainosus; I10 Essential (primary) hypertension; T40.2X5A Adverse effect of other opioids, initial encounter; I25.10 Atherosclerotic heart disease of native coronary artery without angina pectoris; K21.9 Gastro-esophageal reflux disease without esophagitis; Z66 Do not resuscitate; Z51.5 Encounter for palliative care; E03.9 Hypothyroidism, unspecified; Z86.711 Personal history of pulmonary embolism; Z86.718 Personal history of other venous thrombosis and embolism; Z86.73 Personal history of transient ischemic attack (TIA), and cerebral infarction without residual deficits; I25.2 Old myocardial infarction; Z79.899 Other long term (current) drug therapy; Z87.891 Personal history of nicotine dependence; Y92.000 Kitchen of unspecified non-institutional (private) residence as the place of occurrence of the external cause; Z85.528 Personal history of other malignant neoplasm of kidney; Z99.81 Dependence on supplemental oxygen; Z90.5 Acquired absence of kidney; Y93.89 Activity, other specified; Y99.8 Other external cause status; Z88.6 Allergy status to analgesic agent; Z82.49 Family history of ischemic heart disease and other diseases of the circulatory system
CPT/HCPCS: 36415; 36600; 70450; 71045; 71275; 72190; 72192; 74177; 80048; 80053; 81001; 82040; 82306; 82550; 82803; 82962; 83605; 85025; 85610; 85730; 87081; 93005; 94640; 94660; 96374; 96375; 96376; 99285; J1170; J1650; J1885; J2310; J7620; C9113; J0360; J0780; J2930; J7030; J7050; J7512

== ENCOUNTER → 2018-01-20 | Outpatient (CLI) | payer MEDICARE, MEDICAID ==
[~2018-01-20] MED LIST changes: +DIVA-61 PO; -DIVA-68 PO; +FERR-51 PO; +LABE100T6 PO; +MELA5TAB19 PO; +OMNIPAQUE 350 MG/ML, 75ML BOTTLE ONE; +PRED50TA PO
== END | disposition home or self-care (01) ==
LOC: CFH 13:56
PROVIDERS: ATTEND Family Medicine
DX: J43.9 Emphysema, unspecified (principal); J98.4 Other disorders of lung; Z90.49 Acquired absence of other specified parts of digestive tract; Z90.5 Acquired absence of kidney; Z86.73 Personal history of transient ischemic attack (TIA), and cerebral infarction without residual deficits; Z86.718 Personal history of other venous thrombosis and embolism
CPT/HCPCS: 71260; Q9967

== ENCOUNTER 2018-03-08 05:54 | Emergency (ER) | payer MEDICARE, MEDICAID ==
[~2018-03-08] VITALS: Ht 162.6 cm; Wt 65.0 kg
[~2018-03-08 05:54] MED LIST changes: -OMNIPAQUE 350 MG/ML, 75ML BOTTLE ONE
[2018-03-08] MEDS ORDERED: DIVA500T4 PO (06:16)
[2018-03-08] MEDS ORDERED: HYDR-3240 PO (06:16)
[2018-03-08] MEDS ORDERED: L.E.T SOLUTION TP ONE ×2 (06:17→06:30)
[2018-03-08] MEDS ORDERED: DIPH,PERTUSS(ACELL),TET VAC/PF 0.5 ML IM-VACC ONE ×2 (06:17→06:30)
[2018-03-08] MEDS ORDERED: LIDOCAINE-MPF 1%, 2ML ONE (06:17)
[2018-03-08] MEDS ORDERED: LIDOCAINE-MPF 1%, 5ML INFIL ONE (06:30)
[2018-03-08 08:00] VITALS: BP 188/78
== END 2018-03-08 08:17 | disposition home or self-care (01) ==
LOC: ED 08:11
DX: S01.01XA Laceration without foreign body of scalp, initial encounter (principal); S60.212A Contusion of left wrist, initial encounter; R51 Headache; J44.9 Chronic obstructive pulmonary disease, unspecified; I25.2 Old myocardial infarction; Z86.73 Personal history of transient ischemic attack (TIA), and cerebral infarction without residual deficits; W06.XXXA Fall from bed, initial encounter; Y93.89 Activity, other specified; Y99.8 Other external cause status; Y92.009 Unspecified place in unspecified non-institutional (private) residence as the place of occurrence of the external cause
CPT/HCPCS: 12005; 70450; 90471; 90715

== ENCOUNTER 2018-05-09 22:34 | Emergency (ER) | payer MEDICARE, MEDICAID ==
[~2018-05-09] VITALS: Ht 165.1 cm; Wt 73.0 kg
[~2018-05-09 22:34] MED LIST changes: +DIVA500T4 PO; +HYDR-3240 PO
[2018-05-09] MEDS ORDERED: PENICILLIN VK 500MG TABLET ONE (22:54)
[2018-05-09] MEDS ORDERED: PENICILLIN VK 500MG TABLET PO SCH (23:00)
--- NOTE | 2018-05-09 23:15 | NUR ---
PT. B/P REMAINS ELEVATED; REPORTED TO BILLY JAY PT. SUPPOSED TO D/C. PT. DOES REPORT DECREASE IN PAIN DOWN TO 6/10. NADN. PT. DENIES NEEDS AT THIS TIME. SAFETY MEASURES MAINTAINED.
[2018-05-10] VITALS: BP 197/97
--- NOTE | 2018-05-10 00:20 | NUR ---
PT. AMBULATED TO BR WITH SHUFFLING GAIT WITH HAND-HELD ASSIST FROM THIS RN. PT. DENIES ANY ROSS OR DISCOMFORT OTHER THAN THE DENTAL PAIN. B/P REPORTED TO SHREYA JAY; PER HER IT IS OK TO D/C PT WITH CURRENT VS.
== END 2018-05-10 00:32 | disposition home or self-care (01) ==
LOC: ED 23:01
DX: K02.9 Dental caries, unspecified (principal); E78.00 Pure hypercholesterolemia, unspecified; J44.9 Chronic obstructive pulmonary disease, unspecified; I10 Essential (primary) hypertension; E03.9 Hypothyroidism, unspecified; Z85.53 Personal history of malignant neoplasm of renal pelvis
CPT/HCPCS: 99284

== ENCOUNTER 2018-06-10 08:38 | Inpatient (IN) | payer MEDICARE, MEDICAID ==
[~2018-06-10] VITALS: Ht 152.4 cm; Wt 69.9 kg
[2018-06-10] MEDS ORDERED: SODIUM CHLORIDE FLUSH 10ML SYR IVF ONE (09:00)
[2018-06-10 09:32] LABS: BASOPHILS # (AUTO) 0.02 x10^3/uL (0-0.1); BASOPHILS % (AUTO) 0 % (0-1); EOSINOPHILS # (AUTO) 0.16 x10^3/uL (0-0.4); EOSINOPHILS % (AUTO) 3 % (1-7); LYMPHOCYTES % (AUTO) 15 % (22-44); MD NO; MEAN CORPUSCULAR HGB CONC 32.1 g/dL (32.4-35.8); MEAN CORPUSCULAR VOLUME 99.7 fL (80-100); MEAN PLATELET VOLUME 6.6 fL (7.4-10.4); MONOCYTES # (AUTO) 0.53 x10^3/uL (0.2-0.8); MONOCYTES % (AUTO) 8 % (2-9); NEUTROPHILS # (AUTO) 4.86 x10^3/uL (1.8-6.8); NEUTROPHILS % (AUTO) 74 % (42-75); PLATELET COUNT 185 x10^3/uL (130-400); RED BLOOD COUNT 3.01 x10^6/uL (3.82-5.3)
--- NOTE | 2018-06-10 09:34 | NUR ---
PT TO RAD VIA TAMMY
[2018-06-10 09:38] LABS: INTERNATIONAL NORMALIZED RATIO 0.93 (0.93-1.1); PROTHROMBIN TIME 9.9 Seconds (9.6-11.5)
[2018-06-10 09:41] LABS: ALBUMIN 2.7 g/dL (3.4-5.0); ANION GAP 5 mmol/L (5-15); CALCIUM 8.3 mg/dL (8.5-10.1); CHLORIDE 100 mmol/L (98-107)
[2018-06-10 09:46] LABS: ALANINE AMINOTRANSFERASE 7 U/L (12-78); ALKALINE PHOSPHATASE 62 U/L (45-117); CREATININE 0.82 mg/dL (0.55-1.02); TOTAL PROTEIN 6.5 g/dL (6.4-8.2); TROPONIN I < 0.015 ng/mL (0.000-0.045)
[2018-06-10 09:48] LABS: BILIRUBIN,TOTAL 0.2 mg/dL (0.2-1.0)
[2018-06-10 11:23] LABS: MICROSCOPIC NOT IND
[2018-06-10 11:26] LABS: CULTURE INDICATED? NO
--- NOTE | 2018-06-10 11:59 | NUR ---
PT PROVIDED WITH MEAL TRAY, DENIES FURTHER NEEDS AT THIS TIME
[2018-06-10] MEDS ORDERED: SODIUM CHLORIDE FLUSH 10ML SYR IVF PRN (12:30)
[2018-06-10] MEDS ORDERED: ONDANSETRON ODT 4 MG PO PRN (13:00)
[2018-06-10] MEDS ORDERED: hydrALAzine 20 MG/ML, 1ML IVPush PRN (13:00)
[2018-06-10] MEDS ORDERED: POLYETHYLENE GLYCOL 17 GM PACKET PO PRN (13:00)
[2018-06-10] MEDS ORDERED: ONDANSETRON 2MG/ML, 2ML IVPush PRN (13:00)
[2018-06-10] MEDS ORDERED: ENALAPRILAT 1.25 MG/ML, 2ML IVPush PRN (13:00)
[2018-06-10] MEDS ORDERED: BISACODYL 10 MG SUPP PR PRN (13:00)
[2018-06-10] MEDS ORDERED: DOCUSATE 100 MG CAPSULE PO PRN (13:00)
[2018-06-10] MEDS ORDERED: IBUPROFEN 600 MG TABLET PO PRN (13:00)
--- NOTE | 2018-06-10 13:28 | NUR ---
TASK RN: ALEXUS ESTABLISHED. PT TOLERATED WITH NO COMPLICATIONS. PT RESTING ON GURNEY. NO ACUTE DISTRESS NOTED. NO NEEDS REQUESTED AT THIS TIME. PT ATE 50% OF MEAL TRAY.
[2018-06-10] MEDS ORDERED: LACTATED RINGERS 1,000 ML IVBOLUS ONE (13:30)
--- NOTE | 2018-06-10 13:49 | NUR ---
SBAR TO TIMOTHY CASH VIA TELEPHONE
[2018-06-10 14:19] VITALS: BP 156/92
[2018-06-10] MEDS: HEPARIN 5,000 UNITS/ML, 1ML SQ SCH ×2 (15:14→20:37)
[2018-06-10] MEDS: NS + 20MEQ KCL 1,000 ML IV SCH (16:18)
[2018-06-10 19:32] VITALS: BP 163/88
[2018-06-10] MEDS: ACETAMINOPHEN 325 MG TABLET PO PRN (20:37)
[2018-06-10] MEDS: AMITRIPTYLINE 50 MG TABLET PO SCH (20:37)
[2018-06-10] MEDS: FAMOTIDINE 20 MG TABLET PO SCH (20:37)
[2018-06-11] VITALS (10 sets, daily range): BP systolic 109–176; BP diastolic 75–99
[2018-06-11] MEDS: NS + 20MEQ KCL 1,000 ML IV SCH ×2 (02:04→15:56)
[2018-06-11] MEDS: HEPARIN 5,000 UNITS/ML, 1ML SQ SCH ×3 (05:33→20:27)
[2018-06-11 06:04] LABS: ALBUMIN 2.5 g/dL (3.4-5.0); ANION GAP 3 mmol/L (5-15); CALCIUM 8.4 mg/dL (8.5-10.1); CHLORIDE 106 mmol/L (98-107)
[2018-06-11 06:10] LABS: ALANINE AMINOTRANSFERASE 8 U/L (12-78); ALKALINE PHOSPHATASE 49 U/L (45-117); BILIRUBIN,TOTAL 0.6 mg/dL (0.2-1.0); CREATININE 0.72 mg/dL (0.55-1.02); TOTAL PROTEIN 5.8 g/dL (6.4-8.2)
[2018-06-11 06:24] LABS: MD YES
[2018-06-11 06:25] LABS: MEAN CORPUSCULAR HEMOGLOBIN 32.9 pg (27.0-34.8); MEAN CORPUSCULAR HGB CONC 33.2 g/dL (32.4-35.8); MEAN CORPUSCULAR VOLUME 99.3 fL (80-100); MEAN PLATELET VOLUME 7.1 fL (7.4-10.4); PLATELET COUNT 138 x10^3/uL (130-400); RED BLOOD COUNT 2.71 x10^6/uL (3.82-5.3); RED CELL DISTRIBUTION WIDTH 17.8 % (9.6-15.2)
[2018-06-11 06:31] LABS: BAND#(MANUAL) 0.04 x10^3/uL; BANDS%(MANUAL) 1 % (0-7); EOS#(MANUAL) 0.18 x10^3/uL (0.0-0.4); EOS% (MANUAL) 5 % (1-7); LYMPH#(MANUAL) 1.23 x10^3/uL (1-3.4); LYMPHS% (MANUAL) 35 % (22-44); MONOS#(MANUAL) 0.32 x10^3/uL (0.3-2.7); MONOS% (MANUAL) 9 % (2-9); SEG#(MANUAL) 1.75 x10^3/uL (1.8-6.8); SEGS% (MANUAL) 50 % (42-75)
[2018-06-11 06:32] LABS: <PLATELET ESTIMATE> ADEQUATE; <PLT MORPHOLOGY> NORMAL PLT MORPH; ANISOCYTOSIS 1+; POLYCHROMASIA 1+
[2018-06-11] MEDS ORDERED: MAGNESIUM SULFATE PMX 2GM/50ML 50 ML IV ONE (07:00)
[2018-06-11] MEDS: FAMOTIDINE 20 MG TABLET PO SCH ×2 (08:37→20:26)
[2018-06-11] MEDS: OMEPRAZOLE 20 MG CAPSULE.DR PO SCH (08:37)
[2018-06-11] MEDS: DIVALPROEX 500 MG TAB.ER.24H PO SCH (08:37)
[2018-06-11] MEDS: SENNA/DOCUSATE TABLET PO SCH (08:38)
[2018-06-11] MEDS ORDERED: LEVOTHYROXINE 88 MCG TABLET PO SCH (09:00)
[2018-06-11] MEDS ORDERED: LACTATED RINGERS 1,000 ML IVBOLUS ONE (09:30)
[2018-06-11] MEDS: HYDROcodone/APAP 5/325 TABLET PO PRN ×2 (15:25→21:27)
[2018-06-11] MEDS: AMITRIPTYLINE 50 MG TABLET PO SCH (20:26)
[2018-06-11] MEDS: ACETAMINOPHEN 325 MG TABLET PO PRN (20:26)
[2018-06-11] MEDS: SIMVASTATIN 40 MG TABLET PO SCH (20:26)
[2018-06-12 00:58] VITALS: BP 171/79
[2018-06-12] MEDS: NS + 20MEQ KCL 1,000 ML IV SCH ×2 (02:02→14:04)
[2018-06-12] MEDS: HEPARIN 5,000 UNITS/ML, 1ML SQ SCH ×3 (05:17→20:10)
[2018-06-12] MEDS: HYDROcodone/APAP 5/325 TABLET PO PRN ×2 (05:17→16:36)
[2018-06-12] MEDS ORDERED: AMLODIPINE 5 MG TABLET PO ONE (07:00)
[2018-06-12 07:22] VITALS: BP 166/109
[2018-06-12 07:31] LABS: BASOPHILS # (AUTO) 0.01 x10^3/uL (0-0.1); BASOPHILS % (AUTO) 0 % (0-1); EOSINOPHILS # (AUTO) 0.09 x10^3/uL (0-0.4); EOSINOPHILS % (AUTO) 2 % (1-7); LYMPHOCYTES # (AUTO) 0.86 x10^3/uL (1-3.4); LYMPHOCYTES % (AUTO) 17 % (22-44); MD NO; MEAN CORPUSCULAR HEMOGLOBIN 31.9 pg (27.0-34.8); MEAN CORPUSCULAR HGB CONC 31.9 g/dL (32.4-35.8); MEAN CORPUSCULAR VOLUME 99.9 fL (80-100); MEAN PLATELET VOLUME 6.5 fL (7.4-10.4); MONOCYTES # (AUTO) 0.69 x10^3/uL (0.2-0.8); MONOCYTES % (AUTO) 14 % (2-9); NEUTROPHILS # (AUTO) 3.33 x10^3/uL (1.8-6.8); NEUTROPHILS % (AUTO) 67 % (42-75); PLATELET COUNT 173 x10^3/uL (130-400); RED BLOOD COUNT 3.04 x10^6/uL (3.82-5.3); RED CELL DISTRIBUTION WIDTH 18.1 % (9.6-15.2)
[2018-06-12 07:32] LABS: ANION GAP 4 mmol/L (5-15); CALCIUM 8.7 mg/dL (8.5-10.1); CHLORIDE 108 mmol/L (98-107); CREATININE 0.82 mg/dL (0.55-1.02)
[2018-06-12] MEDS: LEVOTHYROXINE 88 MCG TABLET PO SCH (07:35)
[2018-06-12] MEDS: OMEPRAZOLE 20 MG CAPSULE.DR PO SCH (08:39)
[2018-06-12] MEDS: FAMOTIDINE 20 MG TABLET PO SCH ×2 (08:39→20:10)
[2018-06-12] MEDS: SENNA/DOCUSATE TABLET PO SCH (08:39)
[2018-06-12] MEDS: DIVALPROEX 500 MG TAB.ER.24H PO SCH (08:39)
[2018-06-12] MEDS ORDERED: MAGNESIUM SULFATE PMX 2GM/50ML 50 ML IV ONE (09:30)
[2018-06-12 11:16] LABS: MICROSCOPIC AUTO
[2018-06-12 14:22] VITALS: BP 108/69
[2018-06-12 18:53] VITALS: BP 128/78
[2018-06-12] MEDS: AMITRIPTYLINE 50 MG TABLET PO SCH (20:09)
[2018-06-12] MEDS: SIMVASTATIN 40 MG TABLET PO SCH (20:10)
[2018-06-13 00:30] VITALS: BP 147/81
[2018-06-13] MEDS: NS + 20MEQ KCL 1,000 ML IV SCH ×2 (00:39→11:53)
[2018-06-13] MEDS: LEVOTHYROXINE 88 MCG TABLET PO SCH (05:07)
[2018-06-13] MEDS: HEPARIN 5,000 UNITS/ML, 1ML SQ SCH ×3 (05:07→20:23)
[2018-06-13] MEDS ORDERED: LEVOTHYROXINE 88 MCG TABLET PO SCH (06:00)
[2018-06-13 07:20] VITALS: BP 151/86
[2018-06-13 08:15] LABS: ANION GAP 2 mmol/L (5-15); CALCIUM 8.7 mg/dL (8.5-10.1); CHLORIDE 107 mmol/L (98-107); CREATININE 0.65 mg/dL (0.55-1.02)
[2018-06-13] MEDS: SENNA/DOCUSATE TABLET PO SCH (08:44)
[2018-06-13] MEDS: METOPROLOL TARTRATE 25 MG TABLET PO SCH (08:44)
[2018-06-13] MEDS: DIVALPROEX 500 MG TAB.ER.24H PO SCH (08:44)
[2018-06-13] MEDS: FAMOTIDINE 20 MG TABLET PO SCH (08:44)
[2018-06-13] MEDS: OMEPRAZOLE 20 MG CAPSULE.DR PO SCH (08:44)
[2018-06-13] MEDS ORDERED: MAGNESIUM OXIDE 400 MG TABLET PO SCH (09:00)
[2018-06-13] MEDS: MAGNESIUM OXIDE 400 MG TABLET PO SCH (11:03)
[2018-06-13 13:27] VITALS: BP 145/85
[2018-06-13 20:18] VITALS: BP 136/80
[2018-06-13] MEDS: SIMVASTATIN 40 MG TABLET PO SCH (20:23)
[2018-06-13] MEDS: ACETAMINOPHEN 325 MG TABLET PO PRN (20:41)
[2018-06-13] MEDS ORDERED: SODIUM CHLORIDE 0.9% 1,000 ML IV SCH (23:30)
[2018-06-14 01:19] VITALS: BP 145/71
[2018-06-14] MEDS: HEPARIN 5,000 UNITS/ML, 1ML SQ SCH ×3 (05:27→20:53)
[2018-06-14] MEDS: LEVOTHYROXINE 88 MCG TABLET PO SCH (05:28)
[2018-06-14 06:28] LABS: BASOPHILS # (AUTO) 0.03 x10^3/uL (0-0.1); BASOPHILS % (AUTO) 1 % (0-1); EOSINOPHILS # (AUTO) 0.19 x10^3/uL (0-0.4); EOSINOPHILS % (AUTO) 5 % (1-7); LYMPHOCYTES # (AUTO) 1.56 x10^3/uL (1-3.4); LYMPHOCYTES % (AUTO) 41 % (22-44); MD NO; MEAN CORPUSCULAR HGB CONC 32.4 g/dL (32.4-35.8); MEAN CORPUSCULAR VOLUME 98.6 fL (80-100); MEAN PLATELET VOLUME 6.5 fL (7.4-10.4); MONOCYTES # (AUTO) 0.39 x10^3/uL (0.2-0.8); MONOCYTES % (AUTO) 10 % (2-9); NEUTROPHILS # (AUTO) 1.64 x10^3/uL (1.8-6.8); NEUTROPHILS % (AUTO) 43 % (42-75); PLATELET COUNT 171 x10^3/uL (130-400); RED BLOOD COUNT 2.66 x10^6/uL (3.82-5.3); RED CELL DISTRIBUTION WIDTH 17.3 % (9.6-15.2)
[2018-06-14 06:38] LABS: ALBUMIN 2.5 g/dL (3.4-5.0); ANION GAP 4 mmol/L (5-15); CALCIUM 8.7 mg/dL (8.5-10.1); CHLORIDE 105 mmol/L (98-107)
[2018-06-14 06:39] LABS: CREATININE 0.74 mg/dL (0.55-1.02)
[2018-06-14 07:26] VITALS: BP 140/69
[2018-06-14] MEDS ORDERED: MAGNESIUM SULFATE PMX 2GM/50ML 50 ML IV ONE (09:30)
[2018-06-14] MEDS: METOPROLOL TARTRATE 25 MG TABLET PO SCH (09:58)
[2018-06-14] MEDS: OMEPRAZOLE 20 MG CAPSULE.DR PO SCH (09:59)
[2018-06-14] MEDS: SENNA/DOCUSATE TABLET PO SCH (09:59)
[2018-06-14] MEDS: MAGNESIUM OXIDE 400 MG TABLET PO SCH (09:59)
[2018-06-14] MEDS: TAMSULOSIN 0.4 MG CAP.ER.24H PO SCH (10:07)
[2018-06-14 11:48] LABS: FOLATE LEVEL 7.9 ng/mL (3.1-17.5)
[2018-06-14 14:03] VITALS: BP 146/72
[2018-06-14] MEDS ORDERED: FERR325T5 PO (15:13)
[2018-06-14] MEDS ORDERED: MAGN400T50 PO (15:13)
[2018-06-14] MEDS ORDERED: TAMS-11 PO (15:13)
[2018-06-14] MEDS ORDERED: SODIUM CHLORIDE 0.9% 1,000ML IVBOLUS ONE (16:00)
[2018-06-14 19:20] VITALS: BP 134/80
[2018-06-14] MEDS: SIMVASTATIN 40 MG TABLET PO SCH (20:53)
[2018-06-14] MEDS: ACETAMINOPHEN 325 MG TABLET PO PRN (22:05)
[2018-06-15 01:28] VITALS: BP 145/85
[2018-06-15] MEDS ORDERED: SODIUM CHLORIDE 0.9% 1,000ML IVBOLUS ONE (05:00)
[2018-06-15] MEDS: LEVOTHYROXINE 88 MCG TABLET PO SCH (06:12)
[2018-06-15] MEDS: HEPARIN 5,000 UNITS/ML, 1ML SQ SCH ×2 (06:13→13:47)
[2018-06-15 07:39] VITALS: BP 140/82
[2018-06-15] MEDS ORDERED: FERROUS SULFATE 325 MG TABLET PO SCH (08:00)
[2018-06-15] MEDS: TAMSULOSIN 0.4 MG CAP.ER.24H PO SCH (08:46)
[2018-06-15] MEDS: OMEPRAZOLE 20 MG CAPSULE.DR PO SCH (08:46)
[2018-06-15] MEDS: MAGNESIUM OXIDE 400 MG TABLET PO SCH (08:46)
[2018-06-15] MEDS: SENNA/DOCUSATE TABLET PO SCH (08:47)
[2018-06-15] MEDS ORDERED: METOPROLOL TARTRATE 25 MG TABLET PO SCH (09:00)
[2018-06-15 09:48] LABS: ABSOLUTE RETICS # 0.063 x10^6/uL (0.5-2.5); RED BLOOD COUNT 2.79 x10^6/uL (3.82-5.3); RETICULOCYTE COUNT % 2.24 % (0.5-1.5)
[2018-06-15 15:24] VITALS: BP 153/85
== END 2018-06-15 17:50 | DRG 73 ==
LOC: ED 09:11 → EDIP 12:30 → INTOOBSV 12:30 → 4EST 14:29 → OBSVTOIN 15:06 → 4EST 06-11 02:20
PROVIDERS: ADMIT Family Medicine; ATTEND Family Medicine
PROC: 0T9B70Z Drainage of Bladder with Drainage Device, Via Natural or Artificial Opening (ICD-10-PCS; principal; 2018-06-10)
DX: G90.8 Other disorders of autonomic nervous system (principal); E43 Unspecified severe protein-calorie malnutrition; E87.1 Hypo-osmolality and hyponatremia; Q21.1 Atrial septal defect; D50.9 Iron deficiency anemia, unspecified; D63.8 Anemia in other chronic diseases classified elsewhere; E03.9 Hypothyroidism, unspecified; E78.00 Pure hypercholesterolemia, unspecified; E83.42 Hypomagnesemia; G43.909 Migraine, unspecified, not intractable, without status migrainosus; I11.9 Hypertensive heart disease without heart failure; I25.10 Atherosclerotic heart disease of native coronary artery without angina pectoris; I25.2 Old myocardial infarction; I95.1 Orthostatic hypotension; J44.9 Chronic obstructive pulmonary disease, unspecified; K21.9 Gastro-esophageal reflux disease without esophagitis; M26.69 Other specified disorders of temporomandibular joint; R56.9 Unspecified convulsions; R62.7 Adult failure to thrive; Z66 Do not resuscitate; S40.021A Contusion of right upper arm, initial encounter; W18.30XA Fall on same level, unspecified, initial encounter; Y93.89 Activity, other specified; Y92.049 Unspecified place in boarding-house as the place of occurrence of the external cause; Y99.8 Other external cause status; Z88.5 Allergy status to narcotic agent; Z85.528 Personal history of other malignant neoplasm of kidney; Z86.73 Personal history of transient ischemic attack (TIA), and cerebral infarction without residual deficits; Z87.891 Personal history of nicotine dependence; Z90.5 Acquired absence of kidney; Z91.81 History of falling; Z99.81 Dependence on supplemental oxygen
CPT/HCPCS: 36415; 70450; 70486; 70551; 71045; 72125; 80048; 80053; 80164; 81001; 81003; 82040; 82607; 82728; 82746; 83540; 83550; 83615; 83735; 83880; 84100; 84443; 84466; 84484; 85025; 85045; 85610; 85730; 93005; 93306; 93880; G0378; J1644; J3480; J3475; J7030; J7120

== ENCOUNTER → 2019-10-17 | Outpatient (CLI) | payer MEDICARE, MEDICAID ==
[~2019-10-17] MED LIST changes: +ACET325T26 PO; +FENO145T19 PO; -FENO145T30 PO; +FERR325T5 PO; +HYDR50TA99 PO; +LISI40TA PO; -LORA2ORA PO; +LORA2ORA7 PO; +MAGN400T50 PO; +MELA5TAB14 PO; -MELA5TAB19 PO; +ONDA4TAB13 PO; +OXYC5TAB3 PO; +POLY17PO5 PO; +SENN-193 PO; +SIMV40TA20 PO; -SIMV40TA3 PO; +TAMS-11 PO; +TRAZ-175 PO
== END | disposition home or self-care (01) ==
LOC: RAD 16:49
PROVIDERS: ATTEND Family Medicine
DX: M79.661 Pain in right lower leg (principal)

== ENCOUNTER 2020-06-24 16:34 | Emergency (ER) | payer MEDICARE, MEDICAID ==
[~2020-06-24] VITALS: Ht 165.1 cm; Wt 75.0 kg
[~2020-06-24 16:34] MED LIST changes: -ASPI-515 PO; +ASPI-963 PO; +HYDR-1067 PO; -HYDR-3240 PO; -LISI40TA PO; +LISI40TA9 PO; -OXYC5TAB3 PO; +OXYC5TAB98 PO
[2020-06-24] MEDS ORDERED: ONDANSETRON 2MG/ML, 2ML IVPush ONE (17:00)
[2020-06-24] MEDS ORDERED: HYDROmorphone 1 MG/ML, 1ML INJ IV ONE (17:00)
[2020-06-24] MEDS ORDERED: SODIUM CHLORIDE 0.9% 1,000ML IVBOLUS ONE (17:00)
--- NOTE | 2020-06-24 17:00 | NUR ---
ZIA FROM HOME. PT STATES ABDOMENAL PAIN AND ACHES FOR THE PAST WEAK. C/O OF NAUSEA, 1 EPISODE OF DIARRHEA, AND TENDERNESS TO THE LOWER HALF OF ABDOMEN. DENIES VOMITING. EMS GAVE 100 MCG OF FENTANYL, 4 MG OF ZOFRAN AND 2 L NC. PT IS DNR WITH FULL TREATMENT. PT IS CURRENTLY RESTING IN BED A&OX4.
[2020-06-24] MEDS ORDERED: HYDROmorphone 1 MG/ML, 1ML INJ ONE (17:11)
[2020-06-24] MEDS ORDERED: ONDANSETRON 2MG/ML, 2ML ONE (17:11)
[2020-06-24 17:21] LABS: BASOPHILS % (AUTO) 1 % (0-1); EOSINOPHILS % (AUTO) 2 % (1-7); LYMPHOCYTES % (AUTO) 27 % (22-44); MEAN CORPUSCULAR HEMOGLOBIN 30.9 pg (27.0-34.8); MEAN CORPUSCULAR HGB CONC 33.2 g/dL (32.4-35.8); MEAN PLATELET VOLUME 8.6 fL (7.4-10.4); MONOCYTES % (AUTO) 11 % (2-9); NEUTROPHILS % (AUTO) 59 % (42-75); PLATELET COUNT 153 x10^3/uL (130-400); RED CELL DISTRIBUTION WIDTH 13.9 % (9.6-15.2)
[2020-06-24 17:29] LABS: MD NO
[2020-06-24 17:31] LABS: ANION GAP 7 mmol/L (5-15); CALCIUM 10.1 mg/dL (8.5-10.1); CHLORIDE 107 mmol/L (98-107)
[2020-06-24 17:34] LABS: ALANINE AMINOTRANSFERASE 26 U/L (12-78); ALKALINE PHOSPHATASE 53 U/L (45-117); BILIRUBIN,TOTAL 0.3 mg/dL (0.2-1.0); CREATININE 1.23 mg/dL (0.55-1.02); TOTAL PROTEIN 7.7 g/dL (6.4-8.2)
--- NOTE | 2020-06-24 18:02 | NUR ---
TASK RN: PT RETURNED FROM CT WITH COLD WASH CLOTH IN PLACE OVER IV. PER CT ABLE TO GET STUDY BUT THAT LINE DID INFILTRATE. PT STATES PAIN IMPROVED SINCE MEDICATED FOR PAIN.
[2020-06-24 18:04] LABS: MICROSCOPIC NOT IND
[2020-06-24] MEDS ORDERED: OMNIPAQUE 350 MG/ML, 100ML BOTTLE ONE (18:13)
--- NOTE | 2020-06-24 18:48 | NUR ---
PT GOT UP AND USED BEDSIDE CAMMODE. UNMEASURED URINE
[2020-06-24] MEDS ORDERED: DICYCLOMINE 10 MG/ML, 2ML IM ONE (19:00)
[2020-06-24] MEDS ORDERED: DICYCLOMINE 10 MG/ML, 2ML ONE (19:03)
--- NOTE | 2020-06-24 20:12 | NUR ---
PT UP TO BED COMMODE. UNMEASURED URINE. CURRENTLY BACK IN BED RESTING AWAITING DISCHARGE
[2020-06-24 20:13] VITALS: BP 165/78
== END 2020-06-24 20:53 | disposition home or self-care (01) ==
LOC: ED 19:45
DX: K52.9 Noninfective gastroenteritis and colitis, unspecified (principal); J44.9 Chronic obstructive pulmonary disease, unspecified; I25.2 Old myocardial infarction; E03.9 Hypothyroidism, unspecified; F17.200 Nicotine dependence, unspecified, uncomplicated; I10 Essential (primary) hypertension; Z86.73 Personal history of transient ischemic attack (TIA), and cerebral infarction without residual deficits; Z90.49 Acquired absence of other specified parts of digestive tract
CPT/HCPCS: 36415; 74177; 80053; 81003; 83690; 85025; 96361; 96372; 96374; 96375; 99285; J0500; J1170; J2405; J7030; Q9967

== ENCOUNTER 2020-06-29 18:04 | Emergency (ER) | payer MEDICARE, MEDICAID ==
[~2020-06-29] VITALS: Ht 165.1 cm; Wt 75.0 kg
--- NOTE | 2020-06-29 18:39 | NUR ---
BIBA FOR ABD/RIB PAIN 10/10 IN ALL QUADS. PT STATES SHE WAS JUST SEEN HER WEDNESDAY AND WAS TOLD SHE HAS AN INFECTION. PT STATES SHE WAS GIVEN A PRESCRIPTION FOR MUSCLE RELAXORS AND HAS FINISHED THE PRESCRIPTION. PT ABLE TO AMBULATE WITH SBA TO RESTROOM.
--- NOTE | 2020-06-29 18:49 | NUR ---
REPORT RECEIVED FROM PIERRE CASH. ASSUMING CARE AT THIS TIME. EKG COMPLETE.
--- NOTE | 2020-06-29 18:50 | NUR ---
report given to armen kerns
[2020-06-29 18:54] LABS: MICROSCOPIC NOT IND
[2020-06-29] MEDS ORDERED: ONDANSETRON 2MG/ML, 2ML IVPush ONE (19:00)
[2020-06-29] MEDS ORDERED: SODIUM CHLORIDE FLUSH 10ML SYR IVF ONE (19:00)
[2020-06-29] MEDS ORDERED: HYDROmorphone 1 MG/ML, 1ML INJ IV ONE ×2 (19:00→22:30)
--- NOTE | 2020-06-29 19:34 | NUR ---
PIV ATTEMPTED MULTIPLE TIMES, W/O SUCCESS. LAB ALSO UNABLE TO DRAW BLOOD. TASK RN AND ANOTHER INFORMATION ANALYST AT BEDSIDE TO ATTEMPT AGAIN.
[2020-06-29] MEDS ORDERED: ONDANSETRON 2MG/ML, 2ML ONE (19:39)
[2020-06-29] MEDS ORDERED: HYDROmorphone 1 MG/ML, 1ML INJ ONE ×2 (19:39→22:03)
--- NOTE | 2020-06-29 19:45 | NUR ---
PIV PLACED BY TASK RN, LABS DRAWN BY [employer]. [employer] ADMIN PER JUN. PT CONNECTED TO MONITORING. CALL LIGHT IN REACH.
[2020-06-29 19:57] LABS: BASOPHILS % (AUTO) 1 % (0-1); EOSINOPHILS % (AUTO) 3 % (1-7); LYMPHOCYTES % (AUTO) 22 % (22-44); MEAN PLATELET VOLUME 8.5 fL (7.4-10.4); MONOCYTES % (AUTO) 7 % (2-9); NEUTROPHILS % (AUTO) 67 % (42-75); PLATELET COUNT 183 x10^3/uL (130-400); RED CELL DISTRIBUTION WIDTH 13.4 % (9.6-15.2)
[2020-06-29 20:08] LABS: ALANINE AMINOTRANSFERASE 30 U/L (12-78); ALBUMIN 4.1 g/dL (3.4-5.0); ANION GAP 5 mmol/L (5-15); CALCIUM 10.5 mg/dL (8.5-10.1); CHLORIDE 106 mmol/L (98-107); CREATININE 1.16 mg/dL (0.55-1.02)
[2020-06-29 20:10] LABS: ALKALINE PHOSPHATASE 62 U/L (45-117); BILIRUBIN,TOTAL 0.3 mg/dL (0.2-1.0); TOTAL PROTEIN 7.9 g/dL (6.4-8.2)
[2020-06-29 20:15] LABS: MD NO
--- NOTE | 2020-06-29 21:06 | NUR ---
PT GOING TO CT
--- NOTE | 2020-06-29 21:22 | NUR ---
PT BACK FROM CT. PT AMBULATED TO RESTROOM WITH CGA. PT RECONNECTED TO MONITORING
--- NOTE | 2020-06-29 21:50 | NUR ---
ALL RESULTS ARE BACK AT THIS TIME. CHART UP FOR RECHECK.
--- NOTE | 2020-06-29 21:59 | NUR ---
MD AT BEDSIDE TO UPDATE PT ON POC.
[2020-06-29 22:09] VITALS: BP 179/75
== END 2020-06-29 22:34 | disposition home or self-care (01) ==
LOC: ED 20:22
DX: R10.84 Generalized abdominal pain (principal); R11.0 Nausea; R19.7 Diarrhea, unspecified; J44.9 Chronic obstructive pulmonary disease, unspecified; I25.2 Old myocardial infarction; E78.00 Pure hypercholesterolemia, unspecified; E03.9 Hypothyroidism, unspecified; R94.31 Abnormal electrocardiogram [ECG] [EKG]; Z90.49 Acquired absence of other specified parts of digestive tract; Z85.53 Personal history of malignant neoplasm of renal pelvis; Z86.73 Personal history of transient ischemic attack (TIA), and cerebral infarction without residual deficits; Z90.710 Acquired absence of both cervix and uterus; Z87.891 Personal history of nicotine dependence
CPT/HCPCS: 36415; 74176; 80053; 81003; 83605; 83690; 85025; 93005; 96374; 96375; 96376; 99285; J1170; J2405

== ENCOUNTER 2020-07-02 17:31 | Observation (INO) | payer MEDICARE, MEDICAID ==
[~2020-07-02] VITALS: Ht 165.1 cm; Wt 76.4 kg
[2020-07-02] MEDS ORDERED: HYDROmorphone 1 MG/ML, 1ML INJ IV ONE (18:00)
[2020-07-02] MEDS ORDERED: ONDANSETRON 2MG/ML, 2ML IVPush ONE (18:00)
[2020-07-02] MEDS ORDERED: SODIUM CHLORIDE FLUSH 10ML SYR IVF ONE (18:00)
[2020-07-02] MEDS ORDERED: SODIUM CHLORIDE 0.9% 1,000 ML IV ONE (18:00)
[2020-07-02 18:15] LABS: BASOPHILS % (AUTO) 1 % (0-1); EOSINOPHILS % (AUTO) 3 % (1-7); LYMPHOCYTES % (AUTO) 22 % (22-44); MEAN CORPUSCULAR HGB CONC 32.9 g/dL (32.4-35.8); MEAN PLATELET VOLUME 8.1 fL (7.4-10.4); MONOCYTES % (AUTO) 8 % (2-9); NEUTROPHILS % (AUTO) 66 % (42-75); PLATELET COUNT 186 x10^3/uL (130-400); RED BLOOD COUNT 4.13 x10^6/uL (3.82-5.3); RED CELL DISTRIBUTION WIDTH 13.8 % (9.6-15.2)
[2020-07-02 18:17] LABS: MD NO
[2020-07-02 18:28] LABS: ALANINE AMINOTRANSFERASE 28 U/L (12-78); ALBUMIN 3.8 g/dL (3.4-5.0); ANION GAP 6 mmol/L (5-15); CALCIUM 9.8 mg/dL (8.5-10.1); CHLORIDE 105 mmol/L (98-107)
[2020-07-02 18:31] LABS: MICROSCOPIC NOT IND
[2020-07-02 18:32] LABS: ALKALINE PHOSPHATASE 57 U/L (45-117); BILIRUBIN,TOTAL 0.3 mg/dL (0.2-1.0); CREATININE 1.28 mg/dL (0.55-1.02); TOTAL PROTEIN 7.2 g/dL (6.4-8.2); TROPONIN I < 0.015 ng/mL (0.000-0.045)
[2020-07-02] MEDS ORDERED: ONDANSETRON 2MG/ML, 2ML ONE (18:36)
[2020-07-02] MEDS ORDERED: HYDROmorphone 1 MG/ML, 1ML INJ ONE (18:36)
--- NOTE | 2020-07-02 19:08 | NUR ---
Report to SHAYLA Carson RN.
--- NOTE | 2020-07-02 19:08 | NUR ---
received report from SHREYA Caputo. attempted IV placement multiple times. unsuccessful.
--- NOTE | 2020-07-02 19:20 | NUR ---
IV placed. but infiltrated right away post medications.
--- NOTE | 2020-07-02 19:50 | NUR ---
MD aware. unable to get an IV. per ERP CT scan without contrast.
--- NOTE | 2020-07-02 20:05 | NUR ---
patient to CT scan.
--- NOTE | 2020-07-02 20:20 | NUR ---
back from CT scan. awaiting result.
[2020-07-02] MEDS ORDERED: MELA1TAB8 PO (21:54)
--- NOTE | 2020-07-02 22:08 | NUR ---
Attending MD at bedside.
--- NOTE | 2020-07-02 22:26 | NUR ---
patient ambulated to bathroom with 1 assist.
[2020-07-02] MEDS ORDERED: NITROGLYCERIN 0.4 MG BOTTLE (25 TABS) SL PRN (22:30)
[2020-07-02] MEDS ORDERED: LABETALOL 5MG/ML, 20ML IVPush PRN (22:30)
[2020-07-02] MEDS ORDERED: NITROGLYCERIN 0.4 MG/SPRAY SL PRN (22:30)
[2020-07-02] MEDS ORDERED: IBUPROFEN 600 MG TABLET PO PRN (22:30)
[2020-07-02] MEDS ORDERED: ONDANSETRON ODT 4 MG PO PRN (22:30)
--- NOTE | 2020-07-02 23:04 | NUR ---
bed assigned. report to SHREYA Bradshaw.
[2020-07-02 23:28] VITALS: BP 161/72
[2020-07-03] MEDS ORDERED: KETOROLAC 30 MG/1 ML IVPush ONE (00:30)
[2020-07-03] MEDS: TRAZODONE 100MG TABLET PO SCH ×2 (00:34→21:46)
[2020-07-03] MEDS: hydrOXyzine 50MG TABLET PO SCH ×2 (00:34→21:45)
[2020-07-03] MEDS: MELATONIN 5 MG TABLET PO SCH ×2 (00:35→21:48)
[2020-07-03] MEDS: HEPARIN 5,000 UNITS/ML, 1ML SQ SCH ×3 (00:35→17:02)
[2020-07-03 00:55] LABS: TROPONIN I < 0.015 ng/mL (0.000-0.045)
[2020-07-03] MEDS: MAALOX/HYOSCYAMINE/LIDOCAINE 45 ML BTL PO PRN ×2 (02:03→10:24)
[2020-07-03 05:08] LABS: BASOPHILS % (AUTO) 1 % (0-1); EOSINOPHILS % (AUTO) 4 % (1-7); LYMPHOCYTES % (AUTO) 36 % (22-44); MD NO; MEAN CORPUSCULAR HGB CONC 32.9 g/dL (32.4-35.8); MEAN PLATELET VOLUME 8.5 fL (7.4-10.4); MONOCYTES % (AUTO) 11 % (2-9); NEUTROPHILS % (AUTO) 49 % (42-75); PLATELET COUNT 156 x10^3/uL (130-400); RED BLOOD COUNT 3.78 x10^6/uL (3.82-5.3); RED CELL DISTRIBUTION WIDTH 13.7 % (9.6-15.2)
[2020-07-03 05:22] LABS: CHLORIDE 105 mmol/L (98-107)
[2020-07-03 05:35] LABS: ANION GAP 6 mmol/L (5-15); CALCIUM 9.1 mg/dL (8.5-10.1); CREATININE 1.37 mg/dL (0.55-1.02)
[2020-07-03 05:36] LABS: ALANINE AMINOTRANSFERASE 30 U/L (12-78); ALBUMIN 3.3 g/dL (3.4-5.0); ALKALINE PHOSPHATASE 55 U/L (45-117); BILIRUBIN,TOTAL 0.7 mg/dL (0.2-1.0); TOTAL PROTEIN 6.2 g/dL (6.4-8.2); TROPONIN I < 0.015 ng/mL (0.000-0.045)
[2020-07-03 08:22] VITALS: BP 126/76
[2020-07-03] MEDS ORDERED: BISACODYL 10 MG SUPP PR PRN (09:00)
[2020-07-03] MEDS ORDERED: POLYETHYLENE GLYCOL 17 GM PACKET PO PRN (09:00)
[2020-07-03] MEDS: ASPIRIN 81 MG TABLET EC PO SCH (09:02)
[2020-07-03] MEDS: LEVOTHYROXINE 88 MCG TABLET PO SCH (09:02)
[2020-07-03] MEDS: OMEPRAZOLE 20 MG CAPSULE.DR PO SCH (09:02)
[2020-07-03] MEDS: LISINOPRIL 40 MG TABLET PO SCH (09:06)
[2020-07-03] MEDS: ACETAMINOPHEN 325 MG TABLET PO PRN ×2 (09:14→21:52)
[2020-07-03] MEDS: DOCUSATE 100 MG CAPSULE PO PRN (10:25)
[2020-07-03] MEDS ORDERED: LACTATED RINGERS 500 ML IVBOLUS ONE (12:30)
[2020-07-03 13:05] VITALS: BP 130/83
[2020-07-03] MEDS: LACTATED RINGERS 1,000 ML IV SCH (13:31)
[2020-07-03] MEDS ORDERED: OMNIPAQUE 350 MG/ML, 75ML BOTTLE ONE (16:54)
[2020-07-03 19:53] VITALS: BP 136/80
[2020-07-03] MEDS: MAGNESIUM OXIDE 400 MG TABLET PO SCH (21:46)
[2020-07-04] MEDS: HEPARIN 5,000 UNITS/ML, 1ML SQ SCH ×2 (00:37→08:41)
[2020-07-04 02:40] VITALS: BP 159/68
[2020-07-04 05:03] LABS: ANION GAP 4 mmol/L (5-15); CALCIUM 8.4 mg/dL (8.5-10.1); CHLORIDE 104 mmol/L (98-107)
[2020-07-04 05:04] LABS: BASOPHILS % (AUTO) 1 % (0-1); CREATININE 1.13 mg/dL (0.55-1.02); EOSINOPHILS % (AUTO) 4 % (1-7); LYMPHOCYTES % (AUTO) 29 % (22-44); MEAN CORPUSCULAR HEMOGLOBIN 31.6 pg (27.0-34.8); MEAN CORPUSCULAR HGB CONC 33.7 g/dL (32.4-35.8); MEAN PLATELET VOLUME 8.6 fL (7.4-10.4); MONOCYTES % (AUTO) 11 % (2-9); NEUTROPHILS % (AUTO) 55 % (42-75); PLATELET COUNT 140 x10^3/uL (130-400); RED BLOOD COUNT 3.45 x10^6/uL (3.82-5.3); RED CELL DISTRIBUTION WIDTH 13.6 % (9.6-15.2)
[2020-07-04 05:07] LABS: MD NO
[2020-07-04 07:50] VITALS: BP 159/114
[2020-07-04] MEDS: MAGNESIUM OXIDE 400 MG TABLET PO SCH (08:40)
[2020-07-04] MEDS: LISINOPRIL 40 MG TABLET PO SCH (08:41)
[2020-07-04] MEDS: DOCUSATE 100 MG CAPSULE PO PRN (08:41)
[2020-07-04] MEDS: ASPIRIN 81 MG TABLET EC PO SCH (08:41)
[2020-07-04] MEDS: LEVOTHYROXINE 88 MCG TABLET PO SCH (08:41)
[2020-07-04] MEDS: OMEPRAZOLE 20 MG CAPSULE.DR PO SCH (08:41)
[2020-07-04] MEDS: ACETAMINOPHEN 325 MG TABLET PO PRN (09:36)
[2020-07-04] MEDS: LACTATED RINGERS 1,000 ML IV SCH (12:00)
[2020-07-04] MEDS ORDERED: DOCU-131 PO (12:23)
[2020-07-04] MEDS ORDERED: POLY17PO5 PO (12:23)
== END 2020-07-04 14:03 | disposition home or self-care (01) ==
LOC: ED 21:39 → EDIP 22:03 → INTOOBSV 22:03 → 5SO 23:32 → DCLOUNGE 07-04 13:49
PROVIDERS: ADMIT Family Medicine; ATTEND Family Medicine
DX: R07.89 Other chest pain (principal); I25.10 Atherosclerotic heart disease of native coronary artery without angina pectoris; G47.00 Insomnia, unspecified; I12.9 Hypertensive chronic kidney disease with stage 1 through stage 4 chronic kidney disease, or unspecified chronic kidney disease; N18.30 Chronic kidney disease, stage 3 unspecified; K59.00 Constipation, unspecified; K57.90 Diverticulosis of intestine, part unspecified, without perforation or abscess without bleeding; J44.9 Chronic obstructive pulmonary disease, unspecified; E03.9 Hypothyroidism, unspecified; I25.2 Old myocardial infarction; R63.4 Abnormal weight loss; Z79.899 Other long term (current) drug therapy; Z87.891 Personal history of nicotine dependence; Z90.5 Acquired absence of kidney; Z85.528 Personal history of other malignant neoplasm of kidney; Z86.73 Personal history of transient ischemic attack (TIA), and cerebral infarction without residual deficits; Z86.711 Personal history of pulmonary embolism; Z86.718 Personal history of other venous thrombosis and embolism; Z90.710 Acquired absence of both cervix and uterus; Z79.82 Long term (current) use of aspirin
CPT/HCPCS: 36415; 71045; 71275; 74176; 80048; 80053; 81003; 83690; 83880; 84484; 85025; 85379; 93005; 96361; 96372; 96374; 96375; 97162; 97165; 99285; G0378; J1170; J1644; J1885; J2405; J7120; Q9967

== ENCOUNTER 2020-12-23 11:29 | Inpatient (IN) | payer MEDICARE, MEDICAID ==
[2020-12-23] VITALS (7 sets, daily range): BP systolic 144–184; BP diastolic 79–91
[~2020-12-23] VITALS: Ht 165.1 cm; Wt 75.0 kg
[~2020-12-23 11:29] MED LIST changes: +DOCU-131 PO; -HYDR-1067 PO; +HYDR-2214 PO; +MELA1TAB8 PO
--- NOTE | 2020-12-23 11:52 | NUR ---
1130 late entry-PT BROUGHT IN BY [facility] STROKE ALERT. PER REPORT FROM EMS PT DEVELOPED BILAT LOWER EXT NUMBNESS AND SLURRED SPEECH AT 930 AM. PT HX OF [id number]. ERMD AND STROKE TEAM AT BEDSIDE FOR EVAL. PT TRANSPORTED TO CT
--- NOTE | 2020-12-23 11:53 | NUR ---
PT ALERT & ORIENTED, ABLE TO FOLLWO COMMANDS.
[2020-12-23 12:14] LABS: BASOPHILS % (AUTO) 1 % (0-1); EOSINOPHILS % (AUTO) 1 % (1-7); LYMPHOCYTES % (AUTO) 21 % (22-44); MEAN CORPUSCULAR HEMOGLOBIN 31.6 pg (27.0-34.8); MEAN CORPUSCULAR HGB CONC 33.6 g/dL (32.4-35.8); MEAN PLATELET VOLUME 7.7 fL (7.4-10.4); MONOCYTES % (AUTO) 8 % (2-9); NEUTROPHILS % (AUTO) 68 % (42-75); PLATELET COUNT 194 x10^3/uL (130-400); RED BLOOD COUNT 3.95 x10^6/uL (3.82-5.3); RED CELL DISTRIBUTION WIDTH 14.4 % (9.6-15.2)
[2020-12-23 12:25] LABS: INTERNATIONAL NORMALIZED RATIO 0.96 (0.93-1.1); PROTHROMBIN TIME 10.3 Seconds (9.6-11.5)
--- NOTE | 2020-12-23 12:51 | NUR ---
PT RESTING IN BED, NO NEURO CHANGES. VSS
[2020-12-23] MEDS ORDERED: LABETALOL 5MG/ML, 20ML ONE (13:07)
[2020-12-23] MEDS: LABETALOL 5MG/ML, 20ML IVPush PRN ×2 (13:10→13:50)
[2020-12-23 13:29] LABS: MICROSCOPIC AUTO
[2020-12-23 13:39] LABS: AMPHETAMINE SCREEN, URINE Negative (Negative); BARBITURATE SCREEN, URINE Negative (Negative); BENZODIAZEPINE SCREEN, URINE Negative (Negative); METHADONE SCREEN, URINE Negative (Negative); OPIATE SCREEN, URINE Negative (Negative)
[2020-12-23 13:42] LABS: CANNABINOID SCREEN, URINE Negative (Negative); COCAINE SCREEN, URINE Negative (Negative)
[2020-12-23] MEDS ORDERED: ASPIRIN 325 MG TABLET PO ONE (14:03)
--- NOTE | 2020-12-23 14:18 | NUR ---
Report called to Patti CASH
[2020-12-23] MEDS ORDERED: ONDANSETRON 2MG/ML, 2ML IVPush PRN (14:30)
[2020-12-23] MEDS ORDERED: LABETALOL 5MG/ML, 20ML IV PRN (14:30)
[2020-12-23] MEDS ORDERED: DOCUSATE 100 MG CAPSULE PO PRN (14:30)
[2020-12-23] MEDS ORDERED: POLYETHYLENE GLYCOL 17 GM PACKET PO PRN (14:30)
[2020-12-23] MEDS ORDERED: SENNA/DOCUSATE TABLET PO PRN (14:30)
[2020-12-23] MEDS: ACETAMINOPHEN 650 MG/20.3 ML UDC PO PRN ×2 (16:04→21:31)
[2020-12-23] MEDS: HEPARIN 5,000 UNITS/ML, 1ML SQ SCH ×2 (16:05→23:37)
[2020-12-23] MEDS: SODIUM CHLORIDE 0.9% 1,000 ML IV SCH (16:06)
[2020-12-23] MEDS ORDERED: TRAZ-96 PO (19:56)
[2020-12-23] MEDS: LACTULOSE 10 GM/15 ML UDC PO SCH (20:28)
[2020-12-23] MEDS ORDERED: TRAZODONE 100MG TABLET PO SCH (21:00)
[2020-12-23] MEDS: TRAZODONE 50MG TABLET PO SCH (21:31)
[2020-12-23] MEDS: hydrOXyzine 50MG TABLET PO SCH (21:31)
[2020-12-23] MEDS: ATORVASTATIN 40 MG TABLET PO SCH (21:31)
[2020-12-24] VITALS (8 sets, daily range): BP systolic 116–182; BP diastolic 75–101
[2020-12-24] MEDS: SODIUM CHLORIDE 0.9% 1,000 ML IV SCH ×2 (03:51→16:20)
[2020-12-24] MEDS: LEVOTHYROXINE 88 MCG TABLET PO SCH (06:01)
[2020-12-24] MEDS: OMEPRAZOLE 20 MG CAPSULE.DR PO SCH (06:01)
[2020-12-24 06:21] LABS: BASOPHILS % (AUTO) 1 % (0-1); EOSINOPHILS % (AUTO) 2 % (1-7); LYMPHOCYTES % (AUTO) 28 % (22-44); MEAN CORPUSCULAR HEMOGLOBIN 31.2 pg (27.0-34.8); MEAN CORPUSCULAR HGB CONC 32.8 g/dL (32.4-35.8); MONOCYTES % (AUTO) 8 % (2-9); NEUTROPHILS % (AUTO) 62 % (42-75); PLATELET COUNT 206 x10^3/uL (130-400); RED BLOOD COUNT 3.63 x10^6/uL (3.82-5.3); RED CELL DISTRIBUTION WIDTH 14.2 % (9.6-15.2)
[2020-12-24 06:35] LABS: CHLORIDE 103 mmol/L (98-107)
[2020-12-24 06:51] LABS: ANION GAP 4 mmol/L (5-15); CALCIUM 9.4 mg/dL (8.5-10.1); CHOL/HDL RATIO 2.6; CHOLESTEROL, TOTAL 132 mg/dL (140-239); CREATININE 0.64 mg/dL (0.55-1.02); HDL CHOL % 38 % (28-40); HDL CHOLESTEROL (DIRECT) 50 mg/dL (40-60); LDL CHOLESTEROL,CALCULATED 40 mg/dL (54-169); LDL/HDL RATIO 0.8 (0.5-3.0); TRIGLYCERIDES 211 mg/dL (50-200); VLDL CHOLESTEROL 42 mg/dL (0-25)
[2020-12-24] MEDS ORDERED: LORazepam 1MG TABLET PO ONE (08:00)
[2020-12-24] MEDS: HEPARIN 5,000 UNITS/ML, 1ML SQ SCH ×2 (08:03→15:30)
[2020-12-24] MEDS: MAGNESIUM OXIDE 400 MG TABLET PO SCH ×2 (08:04→08:13)
[2020-12-24] MEDS: ASPIRIN 81 MG TABLET CHEW PO/NG SCH (08:04)
[2020-12-24] MEDS: LISINOPRIL 40 MG TABLET PO SCH (08:05)
[2020-12-24] MEDS: LACTULOSE 10 GM/15 ML UDC PO SCH ×2 (08:15→20:33)
[2020-12-24] MEDS ORDERED: GADOTERATE 7.5 MMOL/15ML SYR ONE (10:31)
[2020-12-24] MEDS: ACETAMINOPHEN 325 MG TABLET PO PRN ×3 (12:25→21:04)
[2020-12-24] MEDS: hydrOXyzine 50MG TABLET PO SCH (20:32)
[2020-12-24] MEDS: ATORVASTATIN 40 MG TABLET PO SCH (20:32)
[2020-12-24] MEDS: TRAZODONE 50MG TABLET PO SCH (20:33)
[2020-12-25 00:08] VITALS: BP 176/98
[2020-12-25] MEDS: HEPARIN 5,000 UNITS/ML, 1ML SQ SCH ×2 (00:15→08:06)
[2020-12-25 02:52] VITALS: BP 159/85
[2020-12-25 04:08] VITALS: BP 172/86
[2020-12-25] MEDS: OMEPRAZOLE 20 MG CAPSULE.DR PO SCH (06:00)
[2020-12-25] MEDS: LEVOTHYROXINE 88 MCG TABLET PO SCH (06:00)
[2020-12-25 07:11] VITALS: BP 158/82
[2020-12-25] MEDS: LACTULOSE 10 GM/15 ML UDC PO SCH (08:04)
[2020-12-25] MEDS: SODIUM CHLORIDE 0.9% 1,000 ML IV SCH (08:04)
[2020-12-25] MEDS: ASPIRIN 81 MG TABLET CHEW PO/NG SCH (08:05)
[2020-12-25] MEDS: LISINOPRIL 40 MG TABLET PO SCH (08:05)
[2020-12-25] MEDS ORDERED: ATOR40TA78 PO (10:31)
[2020-12-25] MEDS ORDERED: GABA-826 PO (11:12)
[2020-12-25 12:45] VITALS: BP 170/97
== END 2020-12-25 15:44 | disposition home health service (06) | DRG 69 ==
LOC: ED 12:57 → 4WST 14:21
PROVIDERS: ADMIT Hospitalist; ATTEND Hospitalist
DX: G45.9 Transient cerebral ischemic attack, unspecified (principal); I16.9 Hypertensive crisis, unspecified; E03.9 Hypothyroidism, unspecified; I10 Essential (primary) hypertension; G89.29 Other chronic pain; I16.0 Hypertensive urgency; G62.9 Polyneuropathy, unspecified; I25.10 Atherosclerotic heart disease of native coronary artery without angina pectoris; J44.9 Chronic obstructive pulmonary disease, unspecified; K59.00 Constipation, unspecified; Z85.528 Personal history of other malignant neoplasm of kidney; I25.2 Old myocardial infarction; Z86.718 Personal history of other venous thrombosis and embolism; Z86.73 Personal history of transient ischemic attack (TIA), and cerebral infarction without residual deficits; Z88.5 Allergy status to narcotic agent; Z88.8 Allergy status to other drugs, medicaments and biological substances; Z88.6 Allergy status to analgesic agent; Z79.899 Other long term (current) drug therapy
CPT/HCPCS: 36415; 70450; 70551; 70552; 72156; 72158; 74018; 80047; 80048; 80061; 80307; 80320; 81001; 82140; 82962; 85025; 85379; 85610; 85730; 93005; 93306; 93880; 93970; G0378; J1644; 92523-GN; A9575; G0480; J7030